=== PATIENT | male | born 1945 | race Caucasian/White ===

== ENCOUNTER 2017-06-16 09:51 | Inpatient (IN) ==
--- OUTSIDE RECORDS SUMMARY | 2017-06-16 11:09 | External Medical Summary | CCD ---
:1945 Author Name JENNIJANETMITCHELL Address [address], [place] [id number] Care Team Providers Name Role Phone MEGHA CANTU Attending Physician Unavailable Vital Signs Unknown or Not Available. Allergies Allergy Code Allergy Type Reaction Status No Known Allergies 0 No known allergies Active Procedures Unknown or Not Available. History of Immunizations Unknown or Not Available. Problems Unknown or Not Available. Results COMP METABOLIC - Collect Date/Time: 04/03/2015 16:11 Test Name Code Test Result Test Units Test Ref Range GLUCOSE 93 mg/dL L=70 H=110 BUN 13 mg/dL L=7 H=18 CREATININE 1.50 mg/dL L=0.60 H=1.30 AGE 69 YEARS GFR 49.6 SODIUM 142 mmol/L L=136 H=145 POTASSIUM 4.0 mmol/L L=3.5 H=5.1 CHLORIDE 105 mmol/L L=98 H=107 CO2 25 mmol/L L=21 H=32 CALCIUM 9.6 mg/dL L=8.5 H=10.1 AST 21 U/L L=15 H=37 ALT 30 U/L L=12 H=78 ALKALINE PHOS 107 U/L L=46 H=116 TOTAL PROTEIN 7.5 g/dL L=6.4 H=8.2 ALBUMIN 4.1 g/dL L=3.4 H=5.0 TOTAL BILI 0.50 mg/dL L=0.00 H=1.00 LIPID PANEL - Collect Date/Time: 04/03/2015 16:11 Test Name Code Test Result Test Units Test Ref Range CHOLESTEROL 158 mg/dL L=0 H=200 TRIGLYCERIDES 238 mg/dL L=30 H=150 HDL 56 mg/dL L=40 H=60 LDL, CALC 54 mg/dL L=0 H=100 VLDL 48 mg/dL L=0 H=40 CHOL/HDL RISK 2.8 RATIO L=0.0 H=5.0 PT FASTING: NO N/A Active Medications Unknown or Not Available. Medications Administered During Visit Unknown or Not Available. Encounters Encounter Diagnosis Diagnosis Code Start Date Essential (primary) hypertension I10 04/03/2015 Social History Smoking Status Code Start Date End Date Former smoker [id number] Patient Decision Aids Unknown or Not Available. Discharge Instructions You were admitted to [facility] AND [facility] on with a principal diagnosis of Essential (primary) hypertension. You were discharged from [facility] on 04/03/2015. Should you have any questions prior to discharge, please contact a member of your healthcare team. If you have left the hospital and have any questions, please contact your primary care physician. Chief Complaint and Reason For Visit Chief Complaint Date of Onset LAB Function Status Unknown or Not Available. Plan of Care Unknown or Not Available. Referral/Transition of Care Unknown or Not Available.
--- OUTSIDE RECORDS SUMMARY | 2017-06-16 11:09 | External Medical Summary | CCD ---
:1945 Author Name MITCHELL ARTEAGA Address [address], [place] [id number] Care Team Providers Name Role Phone EUN EL Attending Physician Unavailable Vital Signs Unknown or Not Available. Allergies Allergy Code Allergy Type Reaction Status No Known Allergies 0 No known allergies Active Procedures Unknown or Not Available. History of Immunizations Unknown or Not Available. Problems Unknown or Not Available. Results Unknown or Not Available. Active Medications Unknown or Not Available. Medications Administered During Visit Unknown or Not Available. Encounters Encounter Diagnosis Diagnosis Code Start Date Cyst of kidney, acquired N281 01/09/2016 Social History Smoking Status Code Start Date End Date Former smoker [id number] Patient Decision Aids Unknown or Not Available. Discharge Instructions You were admitted to [facility] on 01/09/2016 09:39 with a principal diagnosis of Cyst of kidney, acquired You were discharged from [facility] on 01/09/2016 09:39 Should you have any questions prior to discharge, please contact a member of your healthcare team. If you have left the hospital and have any questions, please contact your primary care physician. Chief Complaint and Reason For Visit Chief Complaint Date of Onset US RETO PERITONEAL COMP Function Status Unknown or Not Available. Plan of Care Unknown or Not Available. Referral/Transition of Care Unknown or Not Available.
--- OUTSIDE RECORDS SUMMARY | 2017-06-16 11:09 | External Medical Summary | CCD ---
:1945 Author Name DEEPIKA ÓLPEZ Celine Address [address] [place], [place] [phone] Care Team Providers Name Role Phone MEGHA CANTU Attending Physician Unavailable Vital Signs Unknown or Not Available. Allergies Allergy Code Allergy Type Reaction Status No Known Allergies 0 No known allergies Active Procedures Unknown or Not Available. History of Immunizations Unknown or Not Available. Problems Unknown or Not Available. Results UA AUTO W/ MICRO - Collect Date/Time: 05/29/2014 16:26 Test Name Code Test Result Test Units Test Ref Range COLOR Yellow N/A NORMAL: Yellow APPEARANCE Clear N/A NORMAL: Clear GLUCOSE Negative N/A NORMAL: Negative BILIRUBIN Negative N/A NORMAL: Negative KETONE Negative N/A NORMAL: Negative SPEC GRAVITY 1.015 N/A NORMAL: 1.005-1.030 BLOOD Negative N/A NORMAL: Negative PROTEIN Negative N/A NORMAL: Negative PH 8.0 N/A NORMAL: 5.0-8.0 UROBILINOGEN 1.0 N/A NORMAL: Negative NITRITE Negative N/A NORMAL: Negative LEUKOCYTES Negative N/A NORMAL: Negative MICRO RBC None Seen N/A NORMAL: 0-2 MICRO WBC None Seen N/A NORMAL: 0-2 BACTERIA None Seen N/A NORMAL: None-Trace EPI CELLS None Seen N/A NORMAL: 0-15 MUCUS None Seen N/A NORMAL: None-Small AMORPHOUS None Seen N/A NORMAL: None Seen YEAST None Seen N/A NORMAL: None Seen CRYSTALS None Seen N/A NORMAL: None Seen CAST None Seen N/A NORMAL: None Seen URINE CULTURE? NO N/A Active Medications Unknown or Not Available. Medications Administered During Visit Unknown or Not Available. Encounters Unknown or Not Available. Social History Smoking Status Code Start Date End Date Former smoker [id number] Patient Decision Aids Unknown or Not Available. Discharge Instructions You were admitted to [facility] on 05/29/2014. You were discharged from [facility] on 05/29/2014. Should you have any questions prior to [...]
--- OUTSIDE RECORDS SUMMARY | 2017-06-16 11:09 | External Medical Summary | CCD ---
:1945 Author Name MITCHELL ARTEAGA Address [address], [place] [phone] Care Team Providers Name Role Phone EUN EL Attending Physician Unavailable ANKUSH CALHOUN (Secondary) Physician Unavailable Vital Signs Unknown or Not Available. Allergies Allergy Code Allergy Type Reaction Status No Known Allergies 0 No known allergies Active Procedures Unknown or Not Available. History of Immunizations Unknown or Not Available. Problems Unknown or Not Available. Results RENAL FUNCTION PANEL - Collect Date/Time: 08/27/2015 16:22 Test Name Code Test Result Test Units Test Ref Range GLUCOSE 129 mg/dL L=70 H=110 BUN 18 mg/dL L=7 H=18 CREATININE 1.55 mg/dL L=0.60 H=1.30 AGE 69 YEARS GFR 44.9 SODIUM 140 mmol/L L=136 H=145 POTASSIUM 3.5 mmol/L L=3.5 H=5.1 CHLORIDE 104 mmol/L L=98 H=107 CO2 23 mmol/L L=21 H=32 CALCIUM 9.4 mg/dL L=8.5 H=10.1 ALBUMIN 4.0 g/dL L=3.4 H=5.0 PHOSPHORUS 2.6 mg/dL L=2.5 H=4.9 URIC ACID - Collect Date/Time: 08/27/2015 16:22 Test Name Code Test Result Test Units Test Ref Range URIC ACID 10.5 mg/dL L=2.6 H=7.2 PROTEIN/CREATININE RATIO - Collect Date/Time: 08/27/2015 16:26 Test Name Code Test Result Test Units Test Ref Range PROTEIN, URINE 12.2 mg/dL L=0.0 H=11.9 CREAT, URINE 153.2 mg/dL PROTEIN/CREAT 0.1 CBC W/ DIFF - Collect Date/Time: 08/27/2015 16:22 Test Name Code Test Result Test Units Test Ref Range WBC 8.7 x10^3 L=4.8 H=10.8 RBC 5.24 x10^6 L=4.70 H=6.10 HEMOGLOBIN 16.2 g/dL L=14.0 H=18.0 HEMATOCRIT 48.3 % L=42.0 H=52.0 MCV 92 fL L=80 H=100 MCH 30.9 pg L=27.0 H=33.0 MCHC 33.5 g/dL L=33.0 H=37.0 RDW 13.3 % L=11.5 H=14.5 PLATELETS 196 x10^3 L=150 H=450 MPV 9.2 fL L=7.8 H=11.0 NEUTROPHILS 43.3 % L=40.0 H=80.0 LYMPHOCYTES 42.6 % L=20.0 H=45.0 MONOCYTES 10.3 % L=0.0 H=10.0 EOSINOPHILS 2.9 % L=0.0 H=5.0 BASOPHILS 0.9 % L=0.0 H=2.0 REFLEX MAN DIFF NO N/A UA AUTO W/ MICRO - Collect Date/Time: 08/27/2015 16:26 Test Name Code Test Result Test Units Test Ref Range COLOR Yellow N/A NORMAL: Yellow APPEARANCE Clear N/A NORMAL: Clear GLUCOSE Negative N/A NORMAL: Negative BILIRUBIN Negative N/A NORMAL: Negative KETONE Negative N/A NORMAL: Negative SPEC GRAVITY 1.020 N/A NORMAL: 1.005-1.030 BLOOD Negative N/A NORMAL: Negative PROTEIN Negative N/A NORMAL: Negative PH 5.5 N/A NORMAL: 5.0-8.0 UROBILINOGEN 0.2 N/A NORMAL: Negative NITRITE Negative N/A NORMAL: [...] Encounters Encounter Diagnosis Diagnosis Code Start Date Chronic kidney disease, stage N183 08/27/2015 3 (moderate) Social History Smoking Status Code Start Date End Date Former smoker [id number] Patient Decision Aids Unknown or Not Available. Discharge Instructions You were admitted to [facility] on 08/27/2015 16:17 with a principal diagnosis of Chronic kidney disease, stage 3 (moderate) You had the following tests done: CBC W/ DIFF PROTEIN/CREATININE RATIO RENAL FUNCTION PANEL UA AUTO W/ MICRO URIC ACID You were discharged from [facility] on 08/27/2015 16:17 Should you have any questions prior to [...]
--- OUTSIDE RECORDS SUMMARY | 2017-06-16 11:09 | External Medical Summary | CCD ---
:1945 Author Name MITCHELL ARTEAGA Address [address] [place], [place] [phone] Care Team Providers Name Role Phone EUN EL Attending Physician Unavailable Vital Signs Unknown or Not Available. Allergies Allergy Code Allergy Type Reaction Status No Known Allergies 0 No known allergies Active Procedures Unknown or Not Available. History of Immunizations Unknown or Not Available. Problems Unknown or Not Available. Results URIC ACID - Collect Date/Time: 10/08/2015 16:10 Test Name Code Test Result Test Units Test Ref Range URIC ACID 7.3 mg/dL L=2.6 H=7.2 Active Medications Unknown or Not Available. Medications Administered During Visit Unknown or Not Available. 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 Discharge Instructions You were admitted to [facility] on 10/08/2015 16:03 with a principal diagnosis of Hyperuricemia w/o signs of inflam arthrit and tophaceou You had the following tests done: URIC ACID You were discharged from [facility] on 10/08/2015 16:03 Should you have any questions prior to [...]
--- OUTSIDE RECORDS SUMMARY | 2017-06-16 11:09 | External Medical Summary | CCD ---
:1945 Author Name DEEPIKA LÓPEZ Address [address] [place], [place] [phone] Care Team Providers Name Role Phone RENATE DAVIS Attending Physician Unavailable Vital Signs Unknown or Not Available. Allergies Allergy Code Allergy Type Reaction Status No Known Allergies 0 No known allergies Active Procedures Unknown or Not Available. History of Immunizations Unknown or Not Available. Problems Unknown or Not Available. Results URIC ACID - Collect Date/Time: 11/10/2014 16:35 Test Name Code Test Result Test Units Test Ref Range URIC ACID 8.9 mg/dL L=2.6 H=7.2 CBC W/ DIFF - Collect Date/Time: 11/10/2014 16:35 Test Name Code Test Result Test Units Test Ref Range WBC 13.6 x10^3 L=4.8 H=10.8 RBC 4.96 x10^6 L=4.70 H=6.10 HEMOGLOBIN 15.9 g/dL L=14.0 H=18.0 HEMATOCRIT 47.6 % L=42.0 H=52.0 MCV 96 fL L=80 H=100 MCH 32.0 pg L=27.0 H=33.0 MCHC 33.3 g/dL L=33.0 H=37.0 RDW 13.0 % L=11.5 H=14.5 PLATELETS 209 x10^3 L=150 H=450 MPV 9.0 fL L=7.8 H=11.0 NEUTROPHILS 68.8 % L=40.0 H=80.0 LYMPHOCYTES 20.2 % L=20.0 H=45.0 MONOCYTES 9.8 % L=0.0 H=10.0 EOSINOPHILS 0.6 % L=0.0 H=5.0 BASOPHILS 0.6 % L=0.0 H=2.0 REFLEX MAN DIFF NO N/A SED RATE AUTO - Collect Date/Time: 11/10/2014 16:35 Test Name Code Test Result Test Units Test Ref Range SED RATE 41 mm/HR L=0 H=10 Active Medications Unknown or Not Available. Medications Administered During Visit Unknown or Not Available. Encounters Unknown or Not Available. Social History Smoking Status Code Start Date End Date Former smoker [id number] Patient Decision Aids Unknown or Not Available. Discharge Instructions You were admitted to [facility] on 11/10/2014. You were discharged from [facility] on 11/10/2014. Should you have any questions prior to discharge, please contact a member of your healthcare team. If you have left the hospital and have any questions, please contact your primary care physician. Chief Complaint and Reason For Visit Unknown or Not Available. Function Status Unknown or Not Available. Plan of Care Unknown or Not Available. Referral/Transition of Care Unknown or Not Available.
--- OUTSIDE RECORDS SUMMARY | 2017-06-16 11:09 | External Medical Summary | CCD ---
:1945 Author Name JOEL PALMER Address [address] [place], [place] [phone] Care Team Providers Name Role Phone MEGHA [...] Encounters Encounter Diagnosis Diagnosis Code Start Date HYPERTENSION NOS 4019 10/13/2014 Social History Smoking Status Code Start Date End Date Former smoker [id number] Patient Decision Aids Unknown or Not Available. Discharge Instructions You were admitted to [facility] on with a principal diagnosis of HYPERTENSION NOS. You were discharged from [facility] on 10/13/2014. Should you have any questions prior to discharge, please contact a member of your healthcare team. If you have left the hospital and have any questions, please contact your primary care physician. Chief Complaint and Reason For Visit Chief Complaint Date of Onset US RETRO PERITONEAL COMP Function Status Unknown or Not Available. Plan of Care Unknown or Not Available. Referral/Transition of Care Unknown or Not Available.
--- OUTSIDE RECORDS SUMMARY | 2017-06-16 11:09 | External Medical Summary | Continuity of Care Document ---
:1945 Demographics Phone Unavailable Preferred Language Unknown Marital Status Unknown Evangelical Affiliation Unknown Race Unknown Ethnic Group Unknown Author Organization [facility] Allergies There is no data. Medications There is no data. 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 Encounters ACCT No. Visit Discharge Status Pt. Type Provider Facility Loc./Unit Complaint Date/Time [id number] 02/13/2016 ACT Unknown [id number] 12:41:00 [id number] 01/21/2016 ACT Unknown [id number] 14:16:00 [id number] 09/10/2015 ACT Unknown [id number] 12:53:00 [id number] 06/14/2014 ACT Unknown [id number] 10:33:00 [id number] 04/28/2014 ACT Unknown [id number] 08:58:00 [id number] 04/13/2014 ACT Unknown [id number] 12:47:00 [id number] 02/07/2014 ACT Unknown [id number] 08:28:00 [id number] 10/19/2013 ACT Unknown [id number] 13:14:00 [id number] 02/18/2013 ACT Unknown [id number] 09:08:00 [id number] 01/10/2013 ACT Unknown [id number] 10:13:00 [id number] 01/10/2016 Document 01 12:47:38 Registrati on
--- OUTSIDE RECORDS SUMMARY | 2017-06-16 11:09 | External Medical Summary | CCD ---
:1945 Author Name LÓPEZDEEPIKA Celine Address [address] [place], [place] [phone] Care Team Providers Name Role Phone MEGHA CANTU Attending Physician Unavailable Vital Signs Unknown or Not Available. Allergies Allergy Code Allergy Type Reaction Status No Known Allergies 0 No known allergies Active Procedures Unknown or Not Available. History of Immunizations Unknown or Not Available. Problems Unknown or Not Available. Results COMP METABOLIC - Collect Date/Time: 05/26/2014 16:30 Test Name Code Test Result Test Units Test Ref Range GLUCOSE 99 mg/dL L=70 H=110 BUN 19 mg/dL L=7 H=18 CREATININE 1.80 mg/dL L=0.60 H=1.30 AGE 68 YEARS GFR 40.3 SODIUM 143 mmol/L L=136 H=145 POTASSIUM 4.0 mmol/L L=3.5 H=5.1 CHLORIDE 106 mmol/L L=98 H=107 CO2 25 mmol/L L=21 H=32 CALCIUM 9.1 mg/dL L=8.5 H=10.1 AST 18 U/L L=15 H=37 ALT 33 U/L L=12 H=78 ALKALINE PHOS 86 U/L L=46 H=116 TOTAL PROTEIN 7.3 g/dL L=6.4 H=8.2 ALBUMIN 4.2 g/dL L=3.4 H=5.0 TOTAL BILI 0.60 mg/dL L=0.00 H=1.00 LIPID PANEL - Collect Date/Time: 05/26/2014 16:30 Test Name Code Test Result Test Units Test Ref Range CHOLESTEROL 130 mg/dL L=0 H=200 TRIGLYCERIDES 198 mg/dL L=30 H=150 HDL 52 mg/dL L=40 H=60 LDL, CALC 38 mg/dL L=0 H=100 VLDL 40 mg/dL L=0 H=40 CHOL/HDL RISK 2.5 RATIO L=0.0 H=5.0 PT FASTING: NO N/A Active Medications Unknown or Not Available. Medications Administered During Visit Unknown or Not Available. Encounters Encounter Diagnosis Diagnosis Code Start Date HYPERTENSION NOS 4019 05/26/2014 Social History Smoking Status Code Start Date End Date Former smoker [id number] Patient Decision Aids Unknown or Not Available. Discharge Instructions You were admitted to [facility] on with a principal diagnosis of HYPERTENSION NOS. You were discharged from [facility] on 05/26/2014. Should you have any questions prior to [...]
--- OUTSIDE RECORDS SUMMARY | 2017-06-16 11:09 | External Medical Summary | CCD ---
:1945 Author Name MITCHELL ARTEAGA Address [address] [place], [place] [phone] Care Team Providers Name Role Phone LLOYD UMANZOR Attending Physician Unavailable RENATE DAVIS Rounding (Secondary) Physician Unavailable Vital Signs Unknown or Not Available. Allergies Allergy Code Allergy Type Reaction Status No Known Allergies 0 No known allergies Active Procedures Unknown or Not Available. History of Immunizations Unknown or Not Available. Problems Unknown or Not Available. Results MAGNESIUM - Collect Date/Time: 12/18/2014 15:50 Test Name Code Test Result Test Units Test Ref Range MAGNESIUM 2.1 mg/dL L=1.8 H=2.4 RENAL FUNCTION PANEL - Collect Date/Time: 12/18/2014 15:50 Test Name Code Test Result Test Units Test Ref Range GLUCOSE 105 mg/dL L=70 H=110 BUN 17 mg/dL L=7 H=18 CREATININE 1.60 mg/dL L=0.60 H=1.30 AGE 69 YEARS GFR 46.1 SODIUM 138 mmol/L L=136 H=145 POTASSIUM 3.7 mmol/L L=3.5 H=5.1 CHLORIDE 104 mmol/L L=98 H=107 CO2 24 mmol/L L=21 H=32 CALCIUM 9.5 mg/dL L=8.5 H=10.1 ALBUMIN 3.9 g/dL L=3.4 H=5.0 PHOSPHORUS 3.7 mg/dL L=2.5 H=4.9 URIC ACID - Collect Date/Time: 12/18/2014 15:50 Test Name Code Test Result Test Units Test Ref Range URIC ACID 8.6 mg/dL L=2.6 H=7.2 CREATININE CLEARANCE - Collect Date/Time: 12/18/2014 04:30 Test Name Code Test Result Test Units Test Ref Range HEIGHT 69.0 INCHES WEIGHT 190.0 LBS BSA 2.02 m^2 CREAT, URINE 147.0 mg/dL CREATININE 1.60 mg/dL L=0.60 H=1.30 AGE 69 YEARS GFR 46.1 24HR UR VOLUME 1175 ml CREAT, 24HR URINE 1727 mg/24HR L=600 E=8491 CREAT CLEARANCE 64 mL/min L=97 H=137 TOTAL PROTEIN, 24 HR URINE - Collect Date/Time: 12/18/2014 04:30 Test Name Code Test Result Test Units Test Ref Range PROTEIN, URINE 8.9 mg/dL L=0.0 H=11.9 24HR UR VOLUME 1175 ml PROTEIN, 24HR UR 104.6 mg/24HR L=0.0 H=150 CBC W/ DIFF - Collect Date/Time: 12/18/2014 15:50 Test Name Code Test Result Test Units Test Ref Range WBC 10.7 x10^3 L=4.8 H=10.8 RBC 5.04 x10^6 L=4.70 H=6.10 HEMOGLOBIN 15.8 g/dL L=14.0 H=18.0 HEMATOCRIT 47.4 % L=42.0 H=52.0 MCV 94 fL L=80 H=100 MCH 31.4 pg L=27.0 H=33.0 MCHC 33.4 g/dL L=33.0 H=37.0 RDW 13.3 % L=11.5 H=14.5 PLATELETS 242 x10^3 L=150 H=450 MPV 9.0 fL L=7.8 H=11.0 NEUTROPHILS 50.3 % L=40.0 H=80.0 LYMPHOCYTES 38.2 % L=20.0 H=45.0 MONOCYTES 8.5 % L=0.0 H=10.0 EOSINOPHILS 2.0 % L=0.0 H=5.0 BASOPHILS 1.0 % L=0.0 H=2.0 REFLEX MAN DIFF NO N/A C4 COMPLEMENT - Collect Date/Time: 12/18/2014 15:50 Test Name Code Test Result Test Units Test Ref Range Complement C4, Serum 4498-2 27 mg/dL 9-36 COMPLEMENT C3 - Collect Date/Time: 12/18/2014 15:50 Test Name Code Test Result Test Units Test Ref Range Complement C3, Serum 4485-9 147 mg/dL 90-180 FREE KAPPA & LAMBDA LT. CHAINS, SERUM - Collect Date/Time: 12/18/2014 15:50 Test Name Code Test Result Test [place] [address]-2 19.57 mg/L 3.30-19.40 Chains,[place] [address]-8 11.75 mg/L 5.71-26.30 Chains,S Oriental/Lambda 35160-8 1.67 0.26-1.65 Ratio,S IMMUNOFIXATION (JACEY), SERUM - Collect Date/Time: 12/18/2014 15:50 Test Name Code Test Result Test Units Test Ref Range Immunoglobulin G, 2465-3 770 mg/dL 700-1600 Qn,Serum Immunoglobulin A, 2458-8 204 mg/dL 91-414 Qn,Serum Immunoglobulin M, 2472-9 95 mg/dL 40-230 Qn,Serum IMMUNOFIXATION (JACEY), URINE - Collect Date/Time: 12/18/2014 04:30 Test Name Code Test Result Test Units Test Ref Range TOTAL VOLUME: 1175 MLS N/A PROTEIN ELECTROPHORESIS, 24-HR URINE - Collect Date/Time: 12/18/2014 04:30 Test Name Code Test Result Test Units Test Ref Range Protein,Total,Urine 2888-6 5.4 mg/dL 0.0-15.0 Prot,24hr calculated 2889-4 63.5 30.0-150.[place] [address]-7 36.7 % NOT ESTAB. Vbmqx-9-[place] [address]-4 7.7 % NOT ESTAB. Xsmak-2-Gmljq[place] [address]-4 16.1 % [place] [address]-2 23.8 % [place]. [place] [address]-7 15.7 % NOT ESTAB. TOTAL VOLUME: 1175 MLS N/A M-Jonnathan, % 76698-5 Not Observed N/A Not Observed M-Jonnathan, mg/24 hr 93311-5 BANQUET CHEF N/A PROTEIN ELECTROPHORESIS, SERUM - Collect Date/Time: 12/18/2014 15:50 Test Name Code Test Result Test Units Test Ref Range Protein, Total, 2885-2 6.9 g/dL 6.0-8.5 Serum Albumin 2862-1 3.7 g/dL 3.2-5.6 Uakng-8-Llwbsqql 2865-4 0.3 g/dL 0.1-0.4 Ribid-3-Uxuzrbbn 2868-8 0.9 g/dL 0.4-1.2 Beta Globulin 2871-2 1.1 g/dL 0.6-1.3 Gamma Globulin 2874-6 0.8 g/dL 0.5-1.6 Globulin, Total 88999-0 3.2 g/dL 2.0-4.5 A/G Ratio 1759-0 1.2 0.7-2.0 M-Jonnathan 01815-1 Not Observed N/A Not Observed PTH, INTACT - Collect Date/Time: 12/18/2014 15:50 Test Name Code Test Result Test Units Test Ref Range PTH, Intact 2731-8 37 pg/mL 15-65 VITAMIN D (25-HYDROXY) - Collect Date/Time: 12/18/2014 15:50 Test Name Code Test Result Test Units Test Ref Range Vitamin D, 34430-0 57.2 ng/mL 30.0-100.0 25-Hydroxy Active Medications Unknown or Not Available. Medications Administered During Visit Unknown or Not Available. Encounters Encounter Diagnosis Diagnosis Code Start Date Chronic kidney disease, stage N183 12/18/2014 3 (moderate) Social History Smoking Status Code Start Date End Date Former smoker [id number] Patient Decision Aids Unknown or Not Available. Discharge Instructions You were admitted to [facility] on 07/2014 with a principal diagnosis of Chronic kidney disease, stage 3 (moderate). You had the following tests done: Vitamin D, 25-Hydroxy PTH, Intact Immunoglobulin G, Qn,Serum Immunoglobulin A, Qn,Serum Immunoglobulin M, Qn,Serum Protein, Total, Serum Albumin Stsgy-0-Oojnnewg Nkada-9-Fhaitbkm Beta Globulin Gamma Globulin M-Jonnathan Globulin, Total A/G Ratio Complement C3, Serum Complement C4, Serum Free Oriental Lt Chains,S Free Lambda Lt Chains,S Oriental/Lambda Ratio,S TOTAL VOLUME: TOTAL VOLUME: Protein,Total,Urine Prot,24hr calculated Albumin, U Coqkv-5-Pxhsslob, U Brtaj-4-Vsfndmrd, U Beta Globulin, U Gamma Globulin, U M-Jonnathan, % M-Jonnathan, mg/ 24 hr You were discharged from [facility] on 12/18/2014. Should you have any questions prior to [...]
--- NOTE | 2017-06-16 11:14 | Orthopedic History & Physical ---
Orthopedic HPI - HPI Comments Chetan started having left elbow pain Thursday mid afternoon. Has noticed increased redness and swelling of left elbow, warm to the touch. Painful to extend or move arm. C/O chills, fever. Seen by PCP and was admitted to [facility] in [place] for possible septic joint yesterday. CRP 44 at that time. Received Vancomycin 1gm and Rocephin last night. Repeat labs this morning revealed CRP elevated to 223. WBC 14.3. Reported fever of [address] Laird was notified by Dr. Gudino, admitted directly to [facility]. Patient reports history of gout and is on allopurinol. 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 Absent: weakness, dizziness - Cardiovascular Cardiovascular: Absent: chest pain, palpitations - Respiratory Respiratory: Absent: cough, dyspnea on exertion, wheezing - Gastrointestinal Gastrointestinal: Absent: abdominal pain, nausea, vomiting - Musculoskeletal Musculoskeletal: Present: as per HPI, joint swelling, limited range of motion, tenderness, joint pain - Neurological Neurological: Absent: dizziness, weakness, tingling Medications Home Medications Medication Instructions Recorded Confirmed Type Febuxostat [Uloric] 40 mg PO QDRHS 06/16/17 06/16/17 History Lisinopril [Prinivil] 5 mg PO DAILY 06/16/17 06/16/17 History Metoprolol Tartrate [Lopressor] 25 mg PO WB 06/16/17 06/16/17 History Ranitidine [Zantac] 150 mg PO QAM 06/16/17 06/16/17 History Simvastatin [Zocor] 20 mg PO HS 06/16/17 06/16/17 History Allergies Allergy/AdvReac Type Severity Reaction Status Date / Time No Known Allergies Allergy Verified 06/16/17 12:30 Exam - Constitutional General: cooperative, no acute distress, well developed, well groomed Orientation: alert, oriented x3 - Gait Gait: normal gait - RUE General: normal to inspection - LUE General: edema Skin: erythema, other (Left elbow with erythematous and edematous, with extension distally and proximal from elbow. Warm to palpation. No lesions noted. ) Shoulder Range of Motion: within normal limits Wrist Range of Motion: within normal limits Neurological: no deficits, normal to light touch Vascular: radial pulse within normal limits - Cast/Brace Cast/Brace Side: left Cast/Brace Type: other (sling) Condition: exposed digits with good ROM and capillary refill - Respiratory Respiratory Exam: non-labored - Cardiac Cardiovascular exam: other (radial pulses intact) Orthopedic Assessment and Plan (1) Cellulitis of left elbow Status: Acute Assessment and Plan: Patient was kept NPO for possible wash out of left elbow septic joint. CT scan ordered and showed cellulitis only, no effusion or osteomyelitis. Dr. Laird consulted Dr. Velasco for antibiotic management, will restart Vancomycin per pharmacy and Rocephin 1 gm daily. Patient may eat, will make clear liquid in the morning in case need to proceed with washing out left elbow. Repeat CBC, BMP, CRP in the morning. Consult hospitalist for medical management, HTN, CKD. Hospital Course Summary Disclaimer: The visit summary below is not to be considered part of the above Progress Note.
[2017-06-16] MEDS ORDERED: MORPHINE SULFATE 10 MG SYRINGE IV PRN (11:45)
[2017-06-16 11:54] VITALS: BMI 29.5
[2017-06-16] MEDS ORDERED: IODIXANOL 320mg/ml 100ml INJECTION IV ONE ×2 (13:12)
[2017-06-16] MEDS ORDERED: SALINE FLUSH 10ml SYRINGE ONE (13:12)
[2017-06-16] MEDS ORDERED: NS 1,000 ML IV SCH (13:30)
--- NOTE | 2017-06-16 13:45 | CT Scan Report ---
Indication: septic joint, possible osteomyelitis PROCEDURE: CT elbow LT w con: Encounter: Initial Comparison: None Technique: Axial CT images were performed through the left elbow after the administration of intravenous contrast. Coronal and sagittal two-dimensional reformats. Automated Exposure Control and Iterative Reconstruction dose reducing techniques were utilized. Contrast: Visipaque 320 100 mL Findings: Bone windows show no acute fracture or dislocation. There is mild degenerative change in the elbow joint with osteophyte formation on the radial head. There is no periosteal reaction or osteolysis to suggest osteomyelitis. Mild enthesopathy changes at the olecranon process. No evidence of a joint effusion. Muscular attenuation is normal. There is overlying subcutaneous inflammation and fat stranding seen around the supracondylar humeral area extending to the proximal forearm near the olecranon process. No rim-enhancing abscess however. No sinus tract or fistula noted. Impression: Findings of a cellulitis but no CT evidence of osteomyelitis. .
--- NOTE | 2017-06-16 14:46 | Progress Note ---
- Date 06/16/17 Subjective: Patient is a 71-year-old male who was transferred to [facility] from [facility] due to concern of possible septic elbow. Patient reports he started having elbow pain on 06/13 and by 06/14 he had developed fever and significant pain. At that time he went to the emergency room and was given an IV antibiotic with instructions to follow-up with his PCP the next day. On 06/15, he was seen by his physician and hospitalized for IV antibiotics (vancomycin and Rocephin). He was transferred here for orthopedic evaluation given his elevation of white count despite IV antibiotic treatment. Presently patient's pain is a 0 at rest. Rates 7-8 with movement. Previously 9-10 prior to narcotic pain medication. Patient has no recollection of any injury to the elbow. He did have surgery on his elbow over 10 years ago for what sounds like an ulnar nerve transposition. He's never had any complications or problems with this elbow since surgery. Objective Vital signs: Temperature 98.4 F 06/16/17 13:48 Pulse Rate 84 06/16/17 13:48 Respiratory Rate 26 H 06/16/17 13:48 Blood Pressure 159/85 H 06/16/17 13:48 Pulse Oximetry 92 06/16/17 14:32 Height/Weight/BMI: Height 1.77 m Weight 92 kg Body Mass Index 29.5 - Constitutional Present: no acute distress, well nourished, well developed - Routine HEENT Exam Head: Present: normocephalic, atraumatic - Routine Respiratory Exam Present: CTA bilaterally. Absent: wheezes - Routine Cardiovascular Exam Present: RRR, no murmur - Routine Abdominal Exam Present: soft, non distended, non tender - Routine Extremities Exam Present: no edema, normal capillary refill Comments: Left elbow with moderate swelling and erythema and tenderness. Significant pain with movement and lack of range of motion due to pain. Decreased fiberglass laminator strength left compared to right. - Routine Skin Exam Present: dry, warm - Routine Neurological Exam Present: alert, oriented X3 - Routine Lymphatic Exam Lymphatic: Absent: adenopathy - Routine Psychiatric Exam Present: normal affect, cooperative Results - Imaging and Cardiology CT elbow Additional comments: Date of Exam: 06/16/17 Indication: septic joint, possible osteomyelitis PROCEDURE: CT elbow LT w con: Findings: Bone windows show no acute fracture or dislocation. There is mild degenerative change in the elbow joint with osteophyte formation on the radial head. There is no periosteal reaction or osteolysis to suggest osteomyelitis. Mild enthesopathy changes at the olecranon process. No evidence of a joint effusion. Muscular attenuation is normal. There is overlying subcutaneous inflammation and fat stranding seen around the supracondylar humeral area extending to the proximal forearm near the olecranon process. No rim-enhancing abscess however. No sinus tract or fistula noted. Impression: Findings of a cellulitis but no CT evidence of osteomyelitis. Assessment and Plan (1) Cellulitis of left elbow Current visit: Yes Status: Acute Assessment and Plan: Outside labs: 06/15/17 blood cultures-pending 06/15/17 WBC 12.7 06/16/17 WBC 14.1, hemoglobin 14.1 platelet 183. 06/14/17 CRP 44, uric acid 3.9 06/16/17 CRP 223 06/16/17 creatinine 1.45, BUN 20, sodium 137, potassium 3.8 Assessment Cellulitis left elbow-rule out septic joint Leukocytosis Chronic/associated conditions Hypertension Chronic gout Chronic kidney disease Hyperlipidemia GERD Plan Dr. Laird plans to take patient to the OR presumably for washout. CT shows cellulitis and no evidence of osteomyelitis. Continue antibiotics. He was receiving Rocephin and vancomycin at [facility]. Blood cultures are pending from [facility]. Uric acid level is normal. Patient on allopurinol chronically. Last gout flare greater than 1 year ago. Blood pressure elevated as would be expected given his pain. Will follow pressures. Continue home lisinopril and metoprolol. Continue ranitidine for GERD. Continue allopurinol for gout., Continue Zocor for hyperlipidemia Follow creatinine given his chronic kidney disease. CODE STATUS: DO NOT RESUSCITATE SCDs for DVT prophylaxis Care to return to the [facility] medical clinic upon dismissal. Will continue to follow patient throughout his stay. Thank you for the consult. DVT Prophylaxis: SCD's Resuscitation Status: Do Not Resuscitate - Physician Narrative Physician: Priya Stewart MD Narrative: Date: 06/16/17 Time: 1437 Hospital Course Summary Disclaimer: The visit summary below is not to be considered part of the above Progress Note. Hospital Course: 06/16/17-hospitalist consultation Dr. Laird plans to take patient to the OR presumably for washout. CT shows cellulitis and no evidence of osteomyelitis. Continue antibiotics. He was receiving Rocephin and vancomycin at [facility]. Blood cultures are pending from [facility]. Uric acid level is normal. Patient on allopurinol chronically. Last gout flare greater than 1 year ago. Blood pressure elevated as would be expected given his pain. Will follow pressures. Continue home lisinopril and metoprolol. Continue ranitidine for GERD. Continue allopurinol for gout., Continue Zocor for hyperlipidemia Follow creatinine given his chronic kidney disease. CODE STATUS: DO NOT RESUSCITATE SCDs for DVT prophylaxis Care to return to the [facility] medical clinic upon dismissal.
--- NOTE | 2017-06-16 15:12 | Consult Note ---
Consult Information - Data of Consult Consult date: 06/16/17 Requesting Physician: Zay Laird MD Primary Care Provider: Gregory Gudino DO Family Provider: Gregory Gudino DO - Consult Narrative Reason for consult: Management of chronic medical issues History of present illness: Patient is a 71-year-old male who was [facility] concern of possible [facility] elbow. Patient reports he started having elbow pain on 06/13 and by 06/14 he had developed fever and significant pain. At that time he went to the emergency room and was given an IV antibiotic with instructions to follow-up with his PCP the next day. On 06/15, he was seen by his physician and hospitalized for IV antibiotics (vancomycin and Rocephin). He was transferred here for orthopedic evaluation given his elevation of white count despite IV antibiotic treatment. Presently patient's pain is a 0 at rest. Rates 7-8 with movement. Previously 9-10 prior to narcotic pain medication. Patient has no recollection of any injury to the elbow. He did have surgery on his elbow over 10 years ago for what sounds like an ulnar nerve transposition. He's never had any complications or problems with this elbow since surgery. Past Medical History Medical History Updates: Hypertension. Chronic gout. Chronic kidney disease. Hyperlipidemia. GERD Surgical History: Appendectomy. Left elbow surgery (? Ulnar nerve transposition ) Family History: Father-unknown medical history. when patient was for. Mother- of [place] Brother-. Patient unsure of cause of or any health problems. Family History: As Above - Social History Smoking status: Current some day smoker (smokes and he goes to the [employer], otherwise, quit smoking regularly over 10 years ago) Substance use type: does not use Alcohol intake frequency: a few times a month Housing: house Social history: Patient does not identify a primary care provider. States he just sees "whoever is available at [facility]. " Dr. Gudino was following patient while he was hospitalized in [place]. Review of Systems All systems PM: 10-point ROS was reviewed, no additional remarkable complaints except (left elbow pain, "feverish") Medications Home Medications Medication Instructions Recorded Confirmed Type Febuxostat [Uloric] 40 mg PO QDRHS 06/16/17 06/16/17 History Lisinopril [Prinivil] 5 mg PO DAILY 06/16/17 06/16/17 History Metoprolol Tartrate [Lopressor] 25 mg PO WB 06/16/17 06/16/17 History Ranitidine [Zantac] 150 mg PO QAM 06/16/17 06/16/17 History Simvastatin [Zocor] 20 mg PO HS 06/16/17 06/16/17 History Allergies Allergy/AdvReac Type Severity Reaction Status Date / Time No Known Allergies Allergy Verified 06/16/17 12:30 Exam Vital Signs: Temperature 98.4 F 06/16/17 13:48 Pulse Rate 84 06/16/17 13:48 Respiratory Rate 26 H 06/16/17 13:48 Blood Pressure 159/85 H 06/16/17 13:48 Pulse Oximetry 92 06/16/17 14:32 Height/Weight/BMI: Height 1.77 m Weight 92 kg Body Mass Index 29.5 - Constitutional Present: no acute distress, well nourished, well developed - Routine HEENT Exam Head: Present: normocephalic, atraumatic ENT: Present: mucous membranes moist, oropharynx clear - Routine Neck Exam Present: supple. Absent: lymphadenopathy, thyromegaly - Routine Respiratory Exam Present: CTA bilaterally. Absent: wheezes - Routine Cardiovascular Exam Present: RRR, no murmur - Routine Abdominal Exam Present: soft, normoactive bowel sounds. Absent: tenderness, distended - Routine Extremities Exam Present: no edema, normal capillary refill Comments: Left elbow with moderate swelling and erythema and tenderness. Significant pain with movement and lack of range of motion due to pain. Decreased mental health consultant strength left compared to right. - Routine Skin Exam Present: dry, warm - Routine Neurological Exam Present: alert, oriented X3, CN II-XII intact - Routine Psychiatric Exam Present: normal affect, cooperative Results - Imaging and Cardiology CT elbow Additional comments: Date of Exam: 06/16/17 Indication: septic joint, possible osteomyelitis PROCEDURE: CT elbow LT w con: Findings: Bone windows show no acute fracture or dislocation. There is mild degenerative change in the elbow joint with osteophyte formation on the radial head. There is no periosteal reaction or osteolysis to suggest osteomyelitis. Mild enthesopathy changes at the olecranon process. No evidence of a joint effusion. Muscular attenuation is normal. There is overlying subcutaneous inflammation and fat stranding seen around the supracondylar humeral area extending to the proximal forearm near the olecranon process. No rim-enhancing abscess however. No sinus tract or fistula noted. Impression: Findings of a cellulitis but no CT evidence of osteomyelitis. Assessment and Plan (1) Cellulitis of left elbow Current visit: Yes Status: Acute Assessment and Plan: Outside labs: 06/15/17 blood cultures-pending 06/15/17 WBC 12.7 06/16/17 WBC 14.1, hemoglobin 14.1 platelet 183. 06/14/17 CRP 44, uric acid 3.9 06/16/17 CRP 223 06/16/17 creatinine 1.45, BUN 20, sodium 137, potassium 3.8 Assessment Cellulitis left elbow-rule out septic joint Leukocytosis Chronic/associated conditions Hypertension Chronic gout Chronic kidney disease Hyperlipidemia GERD Plan CT shows cellulitis and no evidence of osteomyelitis. Dr. Laird may take pt to OR tomorrow pending sxs/labs, etc. Continue antibiotics. He was receiving Rocephin and vancomycin at [facility]. Blood cultures are pending from [facility]. Start MiraLAX and senna daily for bowel motivation as patient tends to be constipated and is being treated with narcotic pain medication. Uric acid level is normal. Patient on allopurinol chronically. Last gout flare greater than 1 year ago. Blood pressure elevated as would be expected given his pain. Will follow pressures. Continue home lisinopril and metoprolol. Continue ranitidine for GERD. Continue allopurinol for gout., Continue Zocor for hyperlipidemia Follow creatinine given his chronic kidney disease. CODE STATUS: DO NOT RESUSCITATE SCDs for DVT prophylaxis Care to return to the [facility] medical clinic upon dismissal. Will continue to follow patient throughout his stay. Thank you for the consult. DVT Prophylaxis: SCD's Resuscitation Status: Do Not Resuscitate - Physician Narrative Physician: Priya Stewart MD Narrative: Date: 06/16/17 Time: 2009 I have independently evaluated and examined this patient. I reviewed the chart, the patient's history, and the AWNING CRAFTSPERSON/PA's documented findings as above. We discussed and formulated the assessment and plan as above with additions as below: Mr. Tamayo was resting comfortably when seen. He described onset of elbow pain 4 days ago with aggravation of pain by any movement of the left elbow and inability to fully extend the left arm at the elbow due to pain. No recognized trauma/bite/splinters-etc. Patient is alert and cooperative, he appeared comfortable time of my evaluation. Respirations nonlabored, breath sounds clear; regular cardiac rhythm The left elbow has moderate soft tissue swelling and is held at approximately 150; patient clearly guards the arm. There is very faint erythema over the olecranon which is not well demarcated/ defined. This probably extends over about an 8-10 cm area. Outside labs reviewed; CT of the elbow reviewed by myself-soft tissue swelling without joint space fluid/effusion. Limited motion of the left elbow more suggestive of joint space infection however CT without fluid in the joint. May be worth aspiration prior to consideration of surgical irrigation. Patient has been partially treated but at present there is minimal erythema and I would not anticipate the degree of pain/ motion reduction he is experiencing with cellulitis along. Continue antibiotics- reassess tomorrow and discuss with orthopedics further at that time. Transfer records reviewed. Hospital Course Summary Disclaimer: The visit summary below is not to be considered part of the above Progress Note. Hospital Course: 06/16/17-hospitalist consultation CT shows cellulitis and no evidence of osteomyelitis. Dr. Laird may take pt to OR tomorrow pending sxs/labs, etc. Continue antibiotics. He was receiving Rocephin and vancomycin at [facility]. Blood cultures are pending from [facility]. Uric acid level is normal. Patient on allopurinol chronically. Last gout flare greater than 1 year ago. Start MiraLAX and senna daily for bowel motivation as patient tends to be constipated and is being treated with narcotic pain medication. Blood pressure elevated as would be expected given his pain. Will follow pressures. Continue home lisinopril and metoprolol. Continue ranitidine for GERD. Continue allopurinol for gout., Continue Zocor for hyperlipidemia Follow creatinine given his chronic kidney disease. CODE STATUS: DO NOT RESUSCITATE SCDs for DVT prophylaxis Care to return to the [facility] clinic upon dismissal.
[2017-06-16] MEDS ORDERED: VANCOMYCIN - PHARMACY CONSULT MC ONE (15:33)
[2017-06-16] MEDS: Oxycodone/Acetaminophen 5/325 1 TAB PO PRN (15:42)
[2017-06-16] MEDS ORDERED: CEFTRIAXONE 1 G in NS 50 ML IV SCH (16:00)
--- NOTE | 2017-06-16 16:47 | Pharmacy Consult-Antibiotics ---
Pharmacy Consult-Vancomycin - Consult Information VANCOMYCIN CONSULT: Dx: CELLULITIS Current Renal Fx: SCr = 1.45mg/dl from [facility]. Will give Vancomycin 1,500mg loading dose then 1,250mg ivpb q18h. Will continue to monitor and adjust regimen to maintain therapeutic levels. Thank you.
[2017-06-16] MEDS ORDERED: NS FLUSH BAG 500ml IV PRN (16:58)
[2017-06-16] MEDS ORDERED: CEFTRIAXONE 1 G INJECTION IM SCH (17:00)
[2017-06-16] MEDS: FEBUXOSTAT 40 MG TABLET PO SCH (17:18)
[2017-06-16] MEDS: SENNOSIDES 8.6 MG TABLET PO SCH (20:49)
[2017-06-16] MEDS: LISINOPRIL 5 MG TABLET PO SCH (20:50)
[2017-06-17] MEDS: MORPHINE SULFATE 4mg INJECTION IVP PRN ×2 (08:22→10:40)
--- NOTE | 2017-06-17 08:29 | Infectious Disease Consult ---
Infectious Disease Consult Date of Consultation: 06/17/17 Requesting Physician: Zay Laird Reason for Consultation: antibiotic recs, L elbow swelling History of Present Illness: Mr. Hernandez is a 71 y/o man with a h/o gout who reports that he developed redness pain and swelling over his left elbow last Thursday. 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 He was seen in the emergency room on Thursday and . He states that he was discharged from the emergency room on Thursday. He followed up with his physician on Thursday morning who evaluated him and then admitted him to the hospital in [place]. He also reports that he had fever associated with shaking chills starting on Thursday. Blood cultures were drawn in [place] and they are negative after 24 hours. He was started on vancomycin and Rocephin. His CRP was noted to be significantly elevated. His uric acid level was normal. He was transferred here yesterday under the care of Dr. Laird due to concern for an infected joint. He had a CT done yesterday which did not show a joint effusion or any clear evidence of olecranon bursitis. He has continued on vancomycin and Rocephin. He is not sure if the redness and swelling have improved very much on these antibiotics. He is also had leukocytosis. He had slightly elevated creatinine on admission in [place] however his creatinine now is 1.4. This morning he reports increased pain in his calves bilaterally as well as pain in his ankles and feet. He wonders if this is gout but he also wonders if the SCDs are contributing to his calf pain. He had difficulty walking this morning because of this. He typically takes allopurinol according to records however he his thought that he was taking Uloric. He was made nothing by mouth for possible surgery today however that has now been put on hold. Patient reports that he had some type of surgery on his left elbow about 10 years ago that sounds like a nerve surgery. Medications Home Medications Medication Instructions Recorded Confirmed Type Febuxostat [Uloric] 40 mg PO QDRHS 06/16/17 06/16/17 History Lisinopril [Prinivil] 5 mg PO DAILY 06/16/17 06/16/17 History Metoprolol Tartrate [Lopressor] 25 mg PO WB 06/16/17 06/16/17 History Ranitidine [Zantac] 150 mg PO QAM 06/16/17 06/16/17 History Simvastatin [Zocor] 20 mg PO HS 06/16/17 06/16/17 History Allergies Allergy/AdvReac Type Severity Reaction Status Date / Time No Known Allergies Allergy Verified 06/16/17 12:30 PFSH Patient Stated Medical History Hypertension Yes Sleep Apnea No Hx Renal Disease Yes Medical History Updates: Hypertension. Chronic gout. Chronic kidney disease. Hyperlipidemia. GERD Surgical History: Appendectomy. Left elbow surgery (? Ulnar nerve transposition ) Family History: Father-unknown medical history. when patient was for. Mother- of [place] Brother-. Patient unsure of cause of or any health problems. 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) Does patient use chewing tobacco?: Yes Review of Systems All systems PM: 10-point ROS was reviewed, no additional remarkable complaints except - Constitutional Constitutional: Present: anorexia, chills, fever(s) - Cardiovascular Cardiovascular: Absent: chest pain - Respiratory Respiratory: Absent: cough, dyspnea - Gastrointestinal Gastrointestinal: Absent: diarrhea, nausea, vomiting - Musculoskeletal Musculoskeletal: Present: arthralgias (L elbow), joint swelling (L elbow), myalgias (calf pain) - Integumentary/Breasts Integumentary Comments: Denies any history of eczema or psoriasis - Neurological Neurological: Absent: headache(s) Exam Vital Signs: Temperature 98.2 F 06/17/17 07:18 Pulse Rate 82 06/17/17 07:18 Respiratory Rate 12 06/17/17 07:18 Blood Pressure 147/83 H 06/17/17 07:18 Pulse Oximetry 94 06/17/17 07:18 Height/Weight/BMI: Height 1.77 m Weight 90.1 kg Body Mass Index 29.5 - Constitutional Present: no acute distress, well nourished, well developed - Routine HEENT Exam Head: Present: normocephalic, atraumatic Eye: Present: EOMI, PERRL ENT: Present: mucous membranes moist, oropharynx clear, dentition normal - Routine Neck Exam Present: supple - Routine Respiratory Exam Present: CTA bilaterally - Routine Cardiovascular Exam Present: RRR - Routine Abdominal Exam Present: soft, normoactive bowel sounds, non distended, non tender - Routine Exam Comments: no starkey or bladder distention - Routine Extremities Exam Present: calf tenderness (bilaterally), joint swelling (L elbow). Absent: cyanosis, clubbing, edema (LEs), palpable cord - Detailed Upper Extremity Exam Elbow: Left erythema (moderate), Left swelling, Left tenderness, Left decreased ROM - Routine Skin Exam Present: erythema (over L elbow, indistinct borders, mild warmth) Comments: He has 2 small areas of scaly appearing skin on the left upper extremity which looks a little bit like psoriasis to me. - Routine Neurological Exam Present: alert, oriented X3, CN II-XII intact, normal speech. Absent: motor deficit - Routine Psychiatric Exam Present: normal affect Results - Labs CBC & Chem 7: 06/17/17 03:54 06/17/17 03:54 Microbiology Results: Blood cultures 06/16 from [facility] Impression: L elbow cellulitis with concern for deeper infection Fever, chills Leukocytosis H/o surgery on L elbow 10 years ago, ? ulnar nerve transposition Bilateral calf pain/LE pain Gout HTN HLD CKD Recommendation: I would recommend continuing with vancomycin alone. Will follow up on blood culture results. I would recommend obtaining an MRI of the left elbow to evaluate further for evidence of tendinitis or osteomyelitis. He does not appear to have septic olecranon bursitis. He does not have an obvious joint effusion. Regarding his lower extremity pain I will check a CPK. I would consider adding a nonsteroidal anti-inflammatory or colchicine to see if this helps his symptoms. I will be out until next Thursday but I will be available by phone with any questions.
--- NOTE | 2017-06-17 08:44 | Orthopedic Progress Note ---
Date: Date: 06/17/17 Time: 833 Subjective/Severity of Illness: Patient is sitting up on the edge of the bed this morning. States his left elbow pain has minimally improved overnight. However, when he got up to the restroom this morning he was having lower extremity weakness and said it was difficult to get back to bed. Pain of 8-9 while ambulating bilateral legs distal of knees. Feels pain may be similar to gout flares in the past, but was isolated to one joint as expected. Last gout flare over a year ago. Was changed to Uloric 6 months ago and states has been compliant with medication regimen. Patient unsure if has taken colchicine in the past for acute attacks. Reports feeling feverish/chills, afebrile temp recordings. Reports surgery on left elbow for "pinched nerve" 10 years ago. No other surgeries or history of gout in left elbow. Exam - Constitutional Vital Signs: Temperature 98.2 F 06/17/17 07:18 Pulse Rate 82 06/17/17 07:18 Respiratory Rate 12 06/17/17 07:18 Blood Pressure 147/83 H 06/17/17 07:18 Pulse Oximetry 94 06/17/17 07:18 General: cooperative, no acute distress, well developed, well groomed Orientation: alert, oriented x3 - LUE General: edema Skin: erythema, induration, other (erythematous with mild induration over left elbow, extends proximally and distally. ) - RLE Neurological: no deficits, normal to light touch Right Lower Extremity comments: tenderness to palpation over bilateral lower extremities distal of knee, calves , ankles. Mild erythema noted over great toe with tenderness to palpation. - Respiratory Respiratory Exam: CTA bilaterally, non-labored - Cardiac Cardiovascular exam: Regular Rate/Rhythm, other (radial pulses intact) - Labs Result Diagrams: 06/17/17 03:54 06/17/17 03:54 Abnormal lab results 06/17/17 06/17/17 Range/Units 03:54 03:54 WBC 12.7 H (4.5-11.0) T/MM3 RBC 4.32 L (4.50-5.90) M/MM3 Neut % (Auto) 67.1 H (33-66) % Lymph % (Auto) 18.0 L (23-45) % [place] % (Auto) 13.8 H (0-9.0) % Neut # (Auto) 8.5 H (1.8-7.7) T/MM3 [place] # (Auto) 1.8 H (0-0.8) T/MM3 C-Reactive Protein 265.1 H (0-9) MG/L H & H 06/17/17 Range/Units 03:54 Hgb 14.1 (13.5-17.5) GM/DL Hct 41.0 (41-53) % Orthopedic Assessment and Plan (1) Cellulitis of left elbow Status: Acute Assessment and Plan: Discussed With Dr. Velasco. Awaiting blood cultures from [facility]. She recommends MRI of left elbow, CPK. CRP increased 265 from 244 yesterday. Symptoms not consistent with gout, minimal erythema noted in left great toe will discuss with hospitalist if want to treat acute gout. Continue Vancomycin and Rocephin at this time Keep NPO till review MRI results. Revisited patient later with Dr. Laird. MRI of left elbow reveals myositis with possible septic arthritis and since patient is not improving we will proceed with I&D with exploration of left elbow this afternoon. Remain NPO. Hospital Course Summary Disclaimer: The visit summary below is not to be considered part of the above Progress Note. Hospital Course: 06/16/17-hospitalist consultation CT shows cellulitis and no evidence of osteomyelitis. Dr. Laird may take pt to OR tomorrow pending sxs/labs, etc. Continue antibiotics. He was receiving Rocephin and vancomycin at [facility]. Blood cultures are pending from [facility]. Uric acid level is normal. Patient on allopurinol chronically. Last gout flare greater than 1 year ago. Start MiraLAX and senna daily for bowel motivation as patient tends to be constipated and is being treated with narcotic pain medication. Blood pressure elevated as would be expected given his pain. Will follow pressures. Continue home lisinopril and metoprolol. Continue ranitidine for GERD. Continue allopurinol for gout., Continue Zocor for hyperlipidemia Follow creatinine given his chronic kidney disease. CODE STATUS: DO NOT RESUSCITATE SCDs for DVT prophylaxis Care to return to the [facility] medical clinic upon dismissal.
[2017-06-17] MEDS: POLYETHYL GLYCOL 3350 17gm PACKET PO SCH ×2 (08:49→09:34)
[2017-06-17] MEDS: LISINOPRIL 5 MG TABLET PO SCH (08:49)
[2017-06-17] MEDS: RANITIDINE 150 MG TABLET PO SCH (08:49)
[2017-06-17] MEDS: NS 1,000 ML IV SCH ×3 (08:54→23:18)
--- NOTE | 2017-06-17 10:33 | Progress Note ---
- Date 06/17/17 Subjective: Patient is seen sitting in bed this morning. He reports overnight he developed pain from his knees down. He states a few times he was up to the bathroom and he noticed that he had pain when he would get out of bed. By this morning, he was unable to bear weight and walk due to the pain. He's never experienced anything like this before. He has not noted any swelling or redness or rash to the legs. He states the pain is only from the knees to the feet. He does not complain of numbness. He is concerned that the SCDs may have caused this. He states that the pain in his legs is 8-9 out of 10 and the pain in his elbow at rest is 3-4,and 8-9 with movement. He is no longer running fever, although, subjectively he says he feels "warm." He has had no nausea, vomiting or diarrhea. He feels weak because he has not been able to eat much. He doesn't have an appetite. I confirmed his gout medication as outside records from [facility] listed him on allopurinol. He states he's not been on allopurinol for over [address] Zurita took him off the allopurinol and switched him to Uloric. He has been taking this routinely. Objective Vital signs: Temperature 98.2 F 06/17/17 07:18 Pulse Rate 82 06/17/17 07:18 Respiratory Rate 12 06/17/17 07:18 Blood Pressure 147/83 H 06/17/17 07:18 Pulse Oximetry 94 06/17/17 07:18 Height/Weight/BMI: Height 1.77 m Weight 90.1 kg Body Mass Index 29.5 - Constitutional Present: no acute distress, well nourished, well developed - Routine HEENT Exam Head: Present: normocephalic, atraumatic - Routine Respiratory Exam Present: CTA bilaterally. Absent: wheezes - Routine Cardiovascular Exam Present: RRR, no murmur - Routine Abdominal Exam Present: soft, non distended, non tender - Routine Extremities Exam Present: no edema, normal capillary refill Comments: Bilateral legs are examined. There is no redness, swelling, rash, sensation deficit. He has weakness of the legs, but it is unclear as to whether this is just due to the pain he has with movement. He states he has more pain when I palpate the knee and lower leg as opposed to the pain he gets if he moves the leg. He has no tenderness or pain to the legs above the knees bilaterally. Still has swelling and redness of the left elbow, although swelling does appear to have improved some and he seems a bit less tender. - Routine Skin Exam Present: dry, warm - Routine Neurological Exam Present: alert, oriented X3 - Routine Lymphatic Exam Lymphatic: Absent: adenopathy - Routine Psychiatric Exam Present: cooperative, anxious Results - Labs CBC & Chem 7: 06/17/17 03:54 06/17/17 03:54 Labs: Laboratory Tests 06/17/17 06/17/17 03:54 03:54 Total Creatine Kinase 185 H C-Reactive Protein 265.1 H Assessment and Plan (1) Cellulitis of left elbow Current visit: Yes Status: Acute Assessment and Plan: Outside labs: 06/15/17 blood [id number] growth to date on 06/17/17 06/15/17 WBC 12.7 06/16/17 WBC 14.1, hemoglobin 14.1 platelet 183. 06/14/17 CRP 44, uric acid 3.9 06/16/17 CRP 223 06/16/17 creatinine 1.45, BUN 20, sodium 137, potassium 3.8 Assessment Cellulitis left elbow-rule out septic joint versus gout Leukocytosis Lower leg pain (acute onset overnight for 06/16-06/17-from knees to feet) - question etiology Chronic/associated conditions Hypertension Chronic gout Chronic kidney disease Hyperlipidemia GERD Plan WBC improved from yesterday. 14.1-->12.7. CPK-185. CRP increased from 223-->265 MRI of the elbow showed cellulitis with evidence of myositis and possible septic arthritis. Patient was taken to surgery by Dr. Laird and joint fluid has been sent for evaluation. Dr. Velasco has been consulted and recommends continuing vancomycin and discontinuing Rocephin. Clarified with patient his prophylactic gout medication. Records from [facility] to [facility] indicated he was on allopurinol. He states he had an adverse reaction to allopurinol in the past and Dr. Zurita changed him to Uloric over 6 months ago. Hold Zocor given the pain in his legs (although it is unlikely this has anything to do with his symptoms). Bilateral Doppler of lower extremities was negative. ? etiology of his leg pain. Suspect there is some anxiety playing in to his sxs. Case discussed with Dr. Stewart. DC IV fluids later this evening if patient is taking p.o. well. DVT Prophylaxis: SCD's GI Prophylaxis: Rantidine Resuscitation Status: Do Not Resuscitate - Physician Narrative Physician: Priya Stewart MD Narrative: Date: 06/17/17 Time: 1809 I have independently evaluated and examined this patient. I reviewed the chart, the patient's history, and the CLINICAL CASE MANAGER/PA's documented findings as above. We discussed and formulated the assessment and plan as above with additions as below: Mr. Yu describes persistent pain in his left elbow but has developed bilateral pain in bilateral legs as described above. Pain is not cramping and is greatest with attempts to weight bear. He denies swelling in the joints in the lower extremity. Left elbow has slightly decreased soft tissue swelling compared to yesterday and erythema is fading but tenderness persists. No erythema or soft tissue swelling at the joints present in the knees or ankles bilaterally, no tenderness over the Achilles; I'm able to flex and extend at the ankles with minimal discomfort. Palpation of the calf musculature is uncomfortable and triggers myoclonus, no cords palpated. Results of MRI discussed with Dr. Laird midafternoon and patient going to the OR for washout/joint aspiration. Exam is not consistent with disseminated gout or multi-joint infection. Etiology of leg symptoms unclear-cannot exclude neuropathy, possibly antibiotic induced. Will discuss further with Dr. Velasco if ongoing. Gram stain (left elbow deep wound culture)-few gram-positive cocci, moderate neutrophils 35,250 white cells-94% neutrophils and fluid aspirated from left elbow. Venous Dopplers obtained of lower legs bilaterally, reviewed by myself-no evidence of DVT Continue vancomycin. Hospital Course Summary Disclaimer: The visit summary below is not to be considered part of the above Progress Note. Hospital Course: 06/16/17-hospitalist consultation CT shows cellulitis and no evidence of osteomyelitis. Dr. Laird may take pt to OR tomorrow pending sxs/labs, etc. Continue antibiotics. He was receiving Rocephin and vancomycin at [facility]. Blood cultures are pending from [facility]. Uric acid level is normal. Patient on allopurinol chronically. Last gout flare greater than 1 year ago. Start MiraLAX and senna daily for bowel motivation as patient tends to be constipated and is being treated with narcotic pain medication. Blood pressure elevated as would be expected given his pain. Will follow pressures. Continue home lisinopril and metoprolol. Continue ranitidine for GERD. Continue allopurinol for gout., Continue Zocor for hyperlipidemia Follow creatinine given his chronic kidney disease. CODE STATUS: DO NOT RESUSCITATE SCDs for DVT prophylaxis Care to return to the [facility] clinic upon dismissal. 06/17/17 WBC improved from yesterday. 14.1-->12.7. CPK-185. CRP increased from 223-->265 MRI of the elbow showed cellulitis with evidence of myositis and possible septic arthritis. Patient was taken to surgery by Dr. Laird and joint fluid has been sent for evaluation. Dr. Velasco has been consulted and recommends continuing vancomycin and discontinuing Rocephin. Clarified with patient his prophylactic gout medication. Records from [facility] to [facility] indicated he was on allopurinol. He states he had an adverse reaction to allopurinol in the past and Dr. Zurita changed him to Uloric over 6 months ago. Hold Zocor given the pain in his legs (although it is unlikely this has anything to do with his symptoms). Bilateral Doppler of lower extremities was negative. ? etiology of his leg pain. Suspect there is some anxiety playing in to his sxs. Case discussed with Dr. Stewart. DC IV fluids later this evening if patient is taking p.o. well.
[2017-06-17] MEDS ORDERED: COLCHICINE 0.6 MG TABLET PO ONE ×2 (10:50→12:00)
[2017-06-17] MEDS ORDERED: COLCHICINE 0.6 MG TABLET PO SCH (11:00)
[2017-06-17] MEDS ORDERED: SALINE FLUSH 10ml SYRINGE ONE (11:12)
--- NOTE | 2017-06-17 12:32 | Ultrasound Report ---
Indication: bilat calf pain PROCEDURE: US venous doppler LE BI: Encounter: Initial Comparison: None Technique: Color Doppler duplex and grayscale sonographic imaging of both lower extremities was performed. Findings: There is no evidence for acute deep venous thrombosis in either thigh. Specifically, serial graded compression was performed from the inguinal ligament to the popliteal bifurcation, bilaterally, demonstrating appropriate compressibility of the deep venous system. In addition, color and pulsed Doppler demonstrate appropriate spontaneous flow, variation with respiration, and augmentation with calf compression. At the ankle, normal flow is identified in the posterior tibial veins; these vessels are also normal in caliber. Impression: No evidence of acute DVT in either lower limb. .
--- NOTE | 2017-06-17 12:46 | Magnetic Resonance Report ---
Indication: pain, swelling PROCEDURE: MR elbow LT wo/w con: Encounter: Initial Comparison: Left elbow CT from yesterday Technique: Multiplanar multisequence MR imaging of the left elbow was performed with and without contrast. Contrast: 18 mL ProHance Findings: Again subcutaneous edema is seen overlying the distal humerus and proximal forearm. Small olecranon bursa fluid collection. There is a moderate sized elbow joint effusion. The triceps tendon is intact. The biceps and brachialis tendons are intact. There is edema within the musculature surrounding the elbow joint anteriorly and posteriorly. The common flexor and extensor tendon origins appear grossly intact. No acute fracture identified. Bone marrow signal intensity is normal. The radial and ulnar collateral ligaments appear grossly intact. Motion artifact limits some of the sequences. Mild degenerative change in the radiocapitellar and ulnar trochlear joints. Postcontrast images shows rim enhancement within the fluid collection overlying the olecranon process best seen on axial postcontrast image 18 and sagittal image #13. This region of fluid measures 1.3 x 1.5 x 1.5 cm in size. There is no enhancement or edema in the adjacent proximal ulna. Impression: 1. Elbow region cellulitis with evidence of myositis and a possible septic arthritis of the elbow joint. Diagnostic elbow joint aspiration may be helpful. 2. No evidence of osteomyelitis. 3. 1.5 cm fluid collection at the olecranon process could represent olecranon bursitis or possibly a small superficial abscess. Results were discussed with the Dr. Laird at 1241 on June 17, 2017 .
[2017-06-17] MEDS ORDERED: FentaNYL 100 MCG/2 ML INJECTION IVP PRN ×2 (12:50→15:26)
--- NOTE | 2017-06-17 12:52 | Pharmacy Consult-Antibiotics ---
Pharmacy Consult-Vancomycin - Laboratory Information WBC 12.7 T/MM3 (4.5-11.0) H 06/17/17 03:54 BUN 19.0 MG/DL (9-20) 06/17/17 03:54 Creatinine 1.4 mg/dL (0.8-1.5) 06/17/17 03:54 - Consult Information With low trough will change dose to vancomycin 1250mg IV q12h. Will order trough on 06/19/18 and continue to monitor. Thank you.
--- NOTE | 2017-06-17 14:33 | Anesthesia Preoperative Report ---
Anesthesia Preoperative Record - Date and Time Date: 06/17/17 Preoperative Diagnosis: Left Elbow Infection Proposed Procedure: i&d of left elbow with exploration NPO Since Date: 06/17/17 NPO Since Time: 10:00 (sherri) Allergies/Adverse Reactions: Allergies Allergy/AdvReac Type Severity Reaction Status Date / Time No Known Allergies Allergy Verified 06/16/17 12:30 - Vital Signs Vital Signs: Temperature 98.2 F 06/17/17 07:18 Pulse Rate 82 06/17/17 07:18 Respiratory Rate 12 06/17/17 07:18 Blood Pressure 147/83 H 06/17/17 07:18 Pulse Oximetry 94 06/17/17 07:18 Height and Weight: Height 1.77 m Weight 90.1 kg Body Mass Index 29.5 - Medications Inpatient Medications: Current Medications Febuxostat (Uloric) 40 mg PO QDRHS [facility] Last Admin: 06/16/17 17:18 Dose: 40 mg Fentanyl (Fentanyl) 25 - 50 mcg IVP Q3H PRN Last Admin: 06/17/17 12:56 Dose: 25 mcg Vancomycin HCl 1,250 mg/ (Sodium Chloride) 250 mls @ 200 mls/hr IV Q18H [facility] Last Infusion: 06/17/17 14:19 Dose: Infused Sodium Chloride (Normal Saline) 1,000 mls @ 100 mls/hr IV .Q10H [facility] Last Infusion: 06/17/17 14:19 Dose: 0 mls/hr Lisinopril (Prinivil) 5 mg PO DAILY [facility] Last Admin: 06/17/17 08:49 Dose: 5 mg Metoprolol Tartrate (Lopressor) 25 mg PO WB [facility] Last Admin: 06/17/17 08:49 Dose: 25 mg Morphine Sulfate (Morphine Sulfate Inj) 2 - 4 mg IVP Q2HR PRN PRN Reason: Pain Last Admin: 06/17/17 10:40 Dose: 4 mg Oxycodone/Acetaminophen (Percocet 5/325) 1 - 2 tab PO Q4H PRN PRN Reason: Pain Last Admin: 06/16/17 15:42 Dose: 2 tab Polyethylene Glycol (Miralax) 17 gm PO DAILY [facility] Last Admin: 06/17/17 09:34 Dose: Not Given Ranitidine HCl (Zantac) 150 mg PO QAM [facility] Last Admin: 06/17/17 08:49 Dose: Not Given Senna (Senna Lax) 17.2 mg PO [facility] Last Admin: 06/16/17 20:49 Dose: 17.2 mg Simvastatin (Zocor) 20 mg PO [facility] Last Admin: 06/16/17 20:49 Dose: 20 mg Sodium Chloride (Normal Saline) 500 ml IV PRN PRN Home Medications: Home Medications Medication Instructions Recorded Confirmed Type Febuxostat [Uloric] 40 mg PO QDRHS 06/16/17 06/16/17 History Lisinopril [Prinivil] 5 mg PO DAILY 06/16/17 06/16/17 History Metoprolol Tartrate [Lopressor] 25 mg PO WB 06/16/17 06/16/17 History Ranitidine [Zantac] 150 mg PO QAM 06/16/17 06/16/17 History Simvastatin [Zocor] 20 mg PO HS 06/16/17 06/16/17 History Is Patient on Beta Mikki?: Yes Beta Mikki Last Dose Date/Time: 0900 - Medical History Respiratory: DENIES: Sleep Apnea Cardiovascular: Reports: Hypertension, High Cholesterol - Surgical History GI Surgery/Treatments: Reports: Appendectomy Musculoskeletal Surgery/Tx: Reports: Other (left elbow ) Anesthesia Reactions: None Hx Family Anesthesia Reaction: No - Social History Smoking Status: Current some day smoker (smokes and he goes to the [employer], otherwise, quit smoking regularly over 10 years ago) Hx Chewing Tobacco Use: Yes Substance Use Type: does not use Alcohol Intake Frequency: a few times a month - Pertinent Findings Laboratory: CBC and BMP 06/17/17 03:54 06/17/17 03:54 BMP 06/17/17 03:54 Sodium 141 Potassium 3.9 Chloride 104 Carbon Dioxide 24 BUN 19.0 Creatinine 1.4 Glucose 105 Calcium 9.4 Cardiac Enzymes 06/17/17 06/17/17 Range/Units 03:54 09:16 Total Creatine Kinase 185 H 195 H (55-170) U/L EKG: Sinus Rhythm - Physical Exam Respiratory Exam: Present: lungs clear, bilateral breath sounds equal Cardiovascular Exam: Present: regular rate and rhythm, no murmur - Airway Assessment Mallampati Score: I TMD: 3 Fingerbreadths Neck Extension: good Teeth: upper dentures, lower dentures Overall Assessment: no airway concerns - ASA ASA Score: 3 - Plan Anesthesia: General TIVA, General Inhalation Gases - Discussion Discussion: Discussed risks/options/alternatives of anesthesia and questions answered. Patient consents. Nursing pain assessment noted. Attestation Statement: Prior to the delivery of any anesthetic medication, I examined the patient, developed the plan, obtained the patient's consent and discussed the risk and benefits of the procedure with the patient/guardian. - Additional Information Seen by Anesthesia: Yes
[2017-06-17] MEDS ORDERED: NS 1,000 ML IV SCH (14:45)
[2017-06-17] MEDS ORDERED: FentaNYL 250 MCG/5 ML INJECTION ONE (14:47)
[2017-06-17] MEDS ORDERED: KETAMINE 500 MG/10 ML INJECTION ONE (14:47)
[2017-06-17] MEDS ORDERED: PROPOFOL 500 MG/50 ML VIAL ONE (14:48)
[2017-06-17] MEDS ORDERED: BUPIVACAINE 0.25%/EPI 1:200,000 30ml SDV ONE (15:17)
[2017-06-17] MEDS ORDERED: LIDOCAINE 1% (10mg/ml) 30ml SDV INJ ONE (15:17)
[2017-06-17] MEDS ORDERED: ONDANSETRON 4 MG/2 ML INJECTION ONE (15:18)
[2017-06-17] MEDS ORDERED: DEXAMETHASONE 4 MG/ML INJECTION ONE (15:18)
[2017-06-17] MEDS ORDERED: BUPIV 0.25% 30ml/LIDO 1% 30ml MIXTURE ID ONE (15:20)
[2017-06-17] MEDS ORDERED: HYDROMORPHONE 2 MG/ML INJECTION IVP PRN (15:26)
[2017-06-17] MEDS ORDERED: PROPOFOL 20 ML ONE (15:39)
[2017-06-17] MEDS ORDERED: MIDAZOLAM 2mg/2ml INJECTION ONE (15:52)
--- NOTE | 2017-06-17 16:10 | Anesthesia Postoperative Note ---
- Date and Time Date: 06/17/17 Time: 16:12 - Status Patient Participated in Evaluation: Patient Participated in Person Vital Signs: Temperature 98.0 F 06/17/17 14:41 Pulse Rate 86 06/17/17 14:43 Respiratory Rate 14 06/17/17 14:41 Blood Pressure 155/79 H 06/17/17 14:41 Pulse Oximetry 96 06/17/17 14:41 Respiratory Function: Airway Patent Cardiovascular Function: Regular Pulse EKG: Sinus Rhythm Mental Status: Lethargic Pain Intensity: 0 Hydration: IV Infusing Complications During Recover: None Apparent - Follow-Up Instructions Instructions: Per Surgeon
[2017-06-17] MEDS: SENNOSIDES 8.6 MG TABLET PO SCH (20:07)
[2017-06-17] MEDS: FEBUXOSTAT 40 MG TABLET PO SCH (20:07)
[2017-06-17] MEDS ORDERED: SIMVASTATIN 20 MG TABLET PO SCH (21:00)
[2017-06-18] MEDS: NS 1,000 ML IV SCH (05:29)
[2017-06-18] MEDS: LISINOPRIL 5 MG TABLET PO SCH (08:47)
[2017-06-18] MEDS: RANITIDINE 150 MG TABLET PO SCH (08:47)
[2017-06-18] MEDS: POLYETHYL GLYCOL 3350 17gm PACKET PO SCH (08:47)
--- NOTE | 2017-06-18 09:15 | Orthopedic Progress Note ---
Date: Date: 06/18/17 Time: 911 Subjective/Severity of Illness: Chetan is sitting up in his bed this morning when I visit. States overall his pain has improved. He has improved ROM of left elbow this morning. His legs do not hurt lying in bed as they did yesterday. Reports pain 7/10 with ambulation. Culture of deep left elbow wound from OR shows few positive cocci this morning. Remains on Vancomycin and Rocephin. WBC increased to 14.8. Denies feeling feverish, chills, shortness of breathe, chest pain, nausea. Orthopedic Exam Vital signs: Temperature 97.7 F 06/18/17 07:46 Pulse Rate 68 06/18/17 07:46 Respiratory Rate 20 06/18/17 07:46 Blood Pressure 144/78 H 06/18/17 07:46 Pulse Oximetry 94 06/18/17 07:46 - Constitutional General Appearance: Present: alert, orientated x3, no acute distress, well developed, well nourished - Respiratory Exam Present: non-labored - Cardiovascular Exam Present: pedal pulses intact - Extremities Exam Present: no edema, normal capillary refill. Absent: calf tenderness - Dressing Dressing: dry, intact Comments: APPLE to left elbow, packing in wound, surgical incision with sutures intact. - Integumentary Exam Present: pink, warm, dry - Lymphatic Lymphatic: Present: adenopathy - Neurological Exam Present: intact to light touch, no deficits - Psychiatric Exam Present: alert, oriented - Labs Result Diagrams: 06/18/17 03:45 06/17/17 03:54 Abnormal lab results 06/17/17 06/17/17 06/17/17 Range/Units 09:16 15:19 15:19 WBC (4.5-11.0) T/MM3 RBC (4.50-5.90) M/MM3 Hgb (13.5-17.5) GM/DL Hct (41-53) % Neut % (Auto) (33-66) % Lymph % (Auto) (23-45) % [place] % (Auto) (0-9.0) % Neut # (Auto) (1.8-7.7) T/MM3 [place] # (Auto) (0-0.8) T/MM3 Total Creatine Kinase 195 H (55-170) U/L Fluid Crystal Quantity Many A Fluid Crystal Appear Cloudy A Bloody A Fluid Crystal Color Yellow A Red A Synov Intracell Crystal Both A Synovial Crystal Type Uric acid A 06/18/17 Range/Units 03:45 WBC 14.8 H (4.5-11.0) T/MM3 RBC 4.06 L (4.50-5.90) M/MM3 Hgb 13.0 L (13.5-17.5) GM/DL Hct 38.6 L (41-53) % Neut % (Auto) 80.8 H (33-66) % Lymph % (Auto) 8.9 L (23-45) % [place] % (Auto) 10.0 H (0-9.0) % Neut # (Auto) 12.0 H (1.8-7.7) T/MM3 [place] # (Auto) 1.5 H (0-0.8) T/MM3 Total Creatine Kinase (55-170) U/L Fluid Crystal Quantity Fluid Crystal Appear Fluid Crystal Color Synov Intracell Crystal Synovial Crystal Type H & H 06/17/17 06/18/17 Range/Units 03:54 03:45 Hgb 14.1 13.0 L (13.5-17.5) GM/DL Hct 41.0 38.6 L (41-53) % Orthopedic Assessment and Plan (1) Cellulitis of left elbow Status: Acute Assessment and Plan: Overall erythema and edema of left elbow improved today. Idoafoam packed in left abscess wound, change daily. (2) Septic joint of left elbow Status: Acute Assessment and Plan: Gram positive cocci present on prelim gram stain. Dr. Velasco consulted for antibiotic management, continuing Vanco and Rocephin at this time. PICC line to be placed. Hospitalist for medical management, HTN, CKD. Uric acid noted on crystals from left elbow aspiration- hospitalist treating acute gout. Hospital Course Summary Disclaimer: The visit summary below is not to be considered part of the above Progress Note. Hospital Course: 06/16/17-hospitalist consultation CT shows cellulitis and no evidence of osteomyelitis. Dr. Laird may take pt to OR tomorrow pending sxs/labs, etc. Continue antibiotics. He was receiving Rocephin and vancomycin at [facility]. Blood cultures are pending from [facility]. Uric acid level is normal. Patient on allopurinol chronically. Last gout flare greater than 1 year ago. Start MiraLAX and senna daily for bowel motivation as patient tends to be constipated and is being treated with narcotic pain medication. Blood pressure elevated as would be expected given his pain. Will follow pressures. Continue home lisinopril and metoprolol. Continue ranitidine for GERD. Continue allopurinol for gout., Continue Zocor for hyperlipidemia Follow creatinine given his chronic kidney disease. CODE STATUS: DO NOT RESUSCITATE SCDs for DVT prophylaxis Care to return to the [facility] clinic upon dismissal. 06/17/17 WBC improved from yesterday. 14.1-->12.7. CPK-185. CRP increased from 223-->265 MRI of the elbow showed cellulitis with evidence of myositis and possible septic arthritis. Patient was taken to surgery by Dr. Laird and joint fluid has been sent for evaluation. Dr. Velasco has been consulted and recommends continuing vancomycin and discontinuing Rocephin. Clarified with patient his prophylactic gout medication. Records from [facility] indicated he was on allopurinol. He states he had an adverse reaction to allopurinol in the past and Dr. Zurita changed him to Uloric over 6 months ago. Hold Zocor given the pain in his legs (although it is unlikely this has anything to do with his symptoms). Bilateral Doppler of lower extremities was negative. ? etiology of his leg pain. Suspect there is some anxiety playing in to his sxs. Case discussed with Dr. Stewart. DC IV fluids later this evening if patient is taking p.o. well.
--- NOTE | 2017-06-18 10:24 | Progress Note ---
- Date 06/18/17 Subjective: Pt seen this am sitting in bed. He is having less pain in his LE's and was able to walk to the bathroom this am. Pain in the L elbow is less. No CP, SOA , n/v. No BM for 5 days but not feeling uncomfortable. Passing gas. Appetite is ok. No fevers. Objective Vital signs: Temperature 97.7 F 06/18/17 07:46 Pulse Rate 68 06/18/17 07:46 Respiratory Rate 20 06/18/17 07:46 Blood Pressure 144/78 H 06/18/17 07:46 Pulse Oximetry 94 06/18/17 07:46 Height/Weight/BMI: Height 1.77 m Weight 91.2 kg Body Mass Index 29.5 - Constitutional Present: no acute distress, well nourished, well developed - Routine HEENT Exam Head: Present: normocephalic, atraumatic - Routine Respiratory Exam Present: CTA bilaterally. Absent: wheezes - Routine Cardiovascular Exam Present: RRR, no murmur - Routine Abdominal Exam Present: soft, normoactive bowel sounds, non distended, non tender - Routine Extremities Exam Present: no edema, normal capillary refill Comments: no swelling or redness to the LE's. FROM. Minimal pain with palpation in the L foot. - Routine Skin Exam Present: dry, warm - Routine Neurological Exam Present: alert, oriented X3 - Routine Lymphatic Exam Lymphatic: Absent: adenopathy - Routine Psychiatric Exam Present: normal affect, cooperative Results - Labs CBC & Chem 7: 06/18/17 03:45 06/17/17 03:54 Microbiology Results: Microbiology 06/17/17 15:21 Elbow, Left Gram Stain - Final 06/17/17 15:21 Elbow, Left Deep Wound Culture - Preliminary Culture Initiated - Results Pending 06/17/17 15:19 Elbow, Left Gram Stain - Final 06/17/17 15:19 Elbow, Left Deep Wound Culture - Preliminary Culture Initiated - Results Pending Assessment and Plan (1) Cellulitis of left elbow Current visit: Yes Status: Acute Assessment and Plan: Assessment Cellulitis left elbow-rule out septic joint versus gout Leukocytosis Lower leg pain (acute onset overnight for 4/3-06/17-from knees to feet) - question etiology Acute gout Chronic/associated conditions Hypertension Chronic gout Chronic kidney disease Hyperlipidemia GERD Plan Uric acid crystals found in joint fluid - start indomethacin. On ranitidine for GERD. Follow renal function. Continue vancomycin. Gram positive cocci on gram stain. Leg pain improved, although after I had seen pt, nurse called me and reports pt started having pain when she resumed the SCD's. DC SCD's and start lovenox. DC IVF's. GI Prophylaxis: other (ranitidine) Resuscitation Status: Do Not Resuscitate - Physician Narrative Physician: Priya Stewart MD Narrative: Date: 06/18/17 Time: 1629 Mr. Yu was seen earlier today at which time he described improvement in pain in the elbow and in his legs such that he is able to walk today. He denied fever overnight. Patient is more interactive/talkative today Left elbow wrapped following surgery yesterday; knees/ankles without soft tissue swelling or erythema and minimal tenderness to palpation Mild discomfort on palpation of the calves and patient is slightly jumpy when legs are palpated but appears to anticipate pain and jumps before pressure is exerted -Jokes about going home and having a drink to settle his leg/nerves down Surgical cultures pending; many uric acid crystals including intracellular uric acid crystals described in synovial fluid obtained yesterday. Will treat with for acute monoarticular gout; exam is not suggestive of gouty inflammation in the lower extremities. Given presence of gram-positive cocci in synovial fluid antibiotics will need to be continued pending culture results which-was pretreated with antibiotics prior to obtaining sample. We will discuss duration of treatment with Dr. Velasco. Claritza Landry discussed plans with orthopedics earlier today. Hospital Course Summary Disclaimer: The visit summary below is not to be considered part of the above Progress Note. Hospital Course: 06/16/17-hospitalist consultation CT shows cellulitis and no evidence of osteomyelitis. Dr. Laird may take pt to OR tomorrow pending sxs/labs, etc. Continue antibiotics. He was receiving Rocephin and vancomycin at [facility]. Blood cultures are pending from [facility]. Uric acid level is normal. Patient on allopurinol chronically. Last gout flare greater than 1 year ago. Start MiraLAX and senna daily for bowel motivation as patient tends to be constipated and is being treated with narcotic pain medication. Blood pressure elevated as would be expected given his pain. Will follow pressures. Continue home lisinopril and metoprolol. Continue ranitidine for GERD. Continue allopurinol for gout., Continue Zocor for hyperlipidemia Follow creatinine given his chronic kidney disease. CODE STATUS: DO NOT RESUSCITATE SCDs for DVT prophylaxis Care to return to the [facility] medical clinic upon dismissal. 06/17/17 WBC improved from yesterday. 14.1-->12.7. CPK-185. CRP increased from 223-->265 MRI of the elbow showed cellulitis with evidence of myositis and possible septic arthritis. Patient was taken to surgery by Dr. Laird and joint fluid has been sent for evaluation. Dr. Velasco has been consulted and recommends continuing vancomycin and discontinuing Rocephin. Clarified with patient his prophylactic gout medication. Records from [facility] indicated he was on allopurinol. He states he had an adverse reaction to allopurinol in the past and Dr. Zurita changed him to Uloric over 6 months ago. Hold Zocor given the pain in his legs (although it is unlikely this has anything to do with his symptoms). Bilateral Doppler of lower extremities was negative. ? etiology of his leg pain. Suspect there is some anxiety playing in to his sxs. Case discussed with Dr. Stewart. DC IV fluids later this evening if patient is taking p.o. well. 06/18/17 Uric acid crystals found in joint fluid - start indomethacin. On ranitidine for GERD. Follow renal function. Continue vancomycin. Gram positive cocci on gram stain. Leg pain improved, although after I had seen pt, nurse called me and reports pt started having pain when she resumed the SCD's. DC SCD's and start lovenox. DC IV fluids.
[2017-06-18] MEDS: ENOXAPARIN 40 MG/0.4 ML INJECTION SQ SCH (11:16)
[2017-06-18] MEDS: INDOMETHACIN 25 MG CAPSULE PO SCH ×2 (12:53→17:17)
[2017-06-18] MEDS: FEBUXOSTAT 40 MG TABLET PO SCH (16:01)
--- NOTE | 2017-06-18 16:09 | Operative Note ---
DATEOFOPERATION PREOPERATIVE DIAGNOSIS Possible left elbow septic arthritis. POSTOPERATIVE DIAGNOSIS Possible left elbow septic arthritis. PROCEDURE Irrigation and debridement left elbow joint with incision and drainage of left elbow abscess. SURGEON Zay Laird MD INSTRUCTION DEAN Sapna Barrow APRN COMPLICATIONS None ANESTHESIA General DESCRIPTION OFPROCEDURE Mr. Hernandez and his left elbow were identified and marked in the preoperative holding area. He was brought back to the operating suite and placed supine on the operating table. He was placed under general anesthesia. The left upper extremity was prepped and draped in my normal sterile fashion and placed onto an arm board. Time-out was performed. The arm was elevated and the tourniquet inflated to 250 mmHg. I started by attempting aspiration of the abscess which was over the proximal olecranon. This was done with an 18-gauge needle. I did get a good return of fluid and this was sent off for culture. I then made a Merly approach to the elbow laterally; sharp dissection was carried through the skin and subcutaneous tissue. I then palpated for the joint between the radial head and the capitellum and aspirated the joint with an 18-gauge needle. I got a good return of somewhat cloudy yellow fluid. It was not nubia pus. This was also sent for culture separately. I then made a capsulotomy so I was able to enter into the joint and proceeded to irrigate the joint out with three liters of normal saline. This was done first with cysto tubing and then I used a 14-gauge angio-cath so I could ensure that I got the entire joint well irrigated out. After this was done, the capsulotomy was repaired with 2-0 Vicryl , subcutaneous tissue was also repaired with 2-0 Vicryl and the skin was closed with 3-0 nylon. I then made an incision over the olecranon approximately 2 cm in length down over where I had earlier aspirated the abscess. Sharp dissection was carried down to the bone and this area was fully irrigated with another three liters of normal saline. This wound was left open. We packed it with Iodoform gauze. Xeroform was placed over the Merly approach incision followed by Kerlix and then an Andrew bandage. The drapes were removed. The tourniquet was let down and he was allowed to awake from general anesthesia and taken to the recovery room under the care of Anesthesia. He tolerated the procedure well and there were no complications. MEDARDO
[2017-06-18] MEDS: SENNOSIDES 8.6 MG TABLET PO SCH (20:11)
[2017-06-19] MEDS: INDOMETHACIN 25 MG CAPSULE PO SCH ×3 (08:23→17:23)
[2017-06-19] MEDS: ENOXAPARIN 40 MG/0.4 ML INJECTION SQ SCH (08:23)
[2017-06-19] MEDS: RANITIDINE 150 MG TABLET PO SCH (08:23)
[2017-06-19] MEDS: POLYETHYL GLYCOL 3350 17gm PACKET PO SCH (08:25)
[2017-06-19] MEDS: LISINOPRIL 5 MG TABLET PO SCH (08:25)
--- NOTE | 2017-06-19 10:34 | Orthopedic Progress Note ---
Date: Date: 06/19/17 Time: 1031 Subjective/Severity of Illness: Chetan is sitting up in bed this morning, overall feeling much better. States his pain is well controlled. Improved ROM of left elbow, and of lower extremities. Is able to ambulate now with decreased pain. Dressing taken down and decreased swelling and erythema surrounding left elbow incisions. WBC improved today. Denies fever, chills, nausea. 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 Will discuss FMLA with case management. Orthopedic Exam Vital signs: Temperature 97.7 F 06/18/17 07:46 Pulse Rate 68 06/18/17 07:46 Respiratory Rate 20 06/18/17 07:46 Blood Pressure 144/78 H 06/18/17 07:46 Pulse Oximetry 94 06/18/17 07:46 - Constitutional General Appearance: Present: alert, orientated x3, no acute distress, well developed, well nourished - Respiratory Exam Present: non-labored - Cardiovascular Exam Present: pedal pulses intact - Extremities Exam Present: no edema, normal capillary refill - Dressing Dressing: dry, intact Comments: packing to left medial surgical wound site. Surgical incision left lateral elbow, edges well approximated, sutures intact. xeroform and gauze dressing. Erythema and edema improved. - Integumentary Exam Present: pink, warm - Lymphatic Lymphatic: Absent: adenopathy - Neurological Exam Present: intact to light touch, no deficits - Psychiatric Exam Present: alert, oriented - Labs Result Diagrams: 06/19/17 03:52 06/19/17 03:52 Abnormal lab results 06/18/17 06/19/17 06/19/17 Range/Units 23:45 03:52 03:52 WBC 12.5 H (4.5-11.0) T/MM3 RBC 3.83 L (4.50-5.90) M/MM3 Hgb 12.3 L (13.5-17.5) GM/DL Hct 36.3 L (41-53) % [place] % (Auto) 9.4 H (0-9.0) % Neut # (Auto) 8.1 H (1.8-7.7) T/MM3 [place] # (Auto) 1.2 H (0-0.8) T/MM3 Sodium 146 H (134-144) MEQ/L Chloride 110 H (98-107) MEQ/L BUN 30.0 H D (9-20) MG/DL Calculated Osmolality 287 H (261-280) MOSM/KG Vancomycin Trough 10.10 L (15-20) ug/mL H & H 06/17/17 06/18/17 06/19/17 Range/Units 03:54 03:45 03:52 Hgb 14.1 13.0 L 12.3 L (13.5-17.5) GM/DL Hct 41.0 38.6 L 36.3 L (41-53) % Orthopedic Assessment and Plan (1) Cellulitis of left elbow Status: Acute Assessment and Plan: Overall erythema and edema of left elbow continues to improve. Improved ROM. Idoafoam packed in left abscess wound, change daily, cover with gauze. (2) Septic joint of left elbow Status: Acute Assessment and Plan: Improved ROM and pain control. Gram positive cocci present on prelim gram stain. Dr. Velasco consulted for antibiotic management. PICC line in place for group home treatment. Hospitalist for medical management, HTN, CKD, acute gout. Hospital Course Summary Disclaimer: The visit summary below is not to be considered part of the above Progress Note. Hospital Course: 06/16/17-hospitalist consultation CT shows cellulitis and no evidence of osteomyelitis. Dr. Laird may take pt to OR tomorrow pending sxs/labs, etc. Continue antibiotics. He was receiving Rocephin and vancomycin at [facility]. Blood cultures are pending from [facility]. Uric acid level is normal. Patient on allopurinol chronically. Last gout flare greater than 1 year ago. Start MiraLAX and senna daily for bowel motivation as patient tends to be constipated and is being treated with narcotic pain medication. Blood pressure elevated as would be expected given his pain. Will follow pressures. Continue home lisinopril and metoprolol. Continue ranitidine for GERD. Continue allopurinol for gout., Continue Zocor for hyperlipidemia Follow creatinine given his chronic kidney disease. CODE STATUS: DO NOT RESUSCITATE SCDs for DVT prophylaxis Care to return to the [facility] medical clinic upon dismissal. 06/17/17 WBC improved from yesterday. 14.1-->12.7. CPK-185. CRP increased from 223-->265 MRI of the elbow showed cellulitis with evidence of myositis and possible septic arthritis. Patient was taken to surgery by Dr. Laird and joint fluid has been sent for evaluation. Dr. Velasco has been consulted and recommends continuing vancomycin and discontinuing Rocephin. Clarified with patient his prophylactic gout medication. Records from [facility] indicated he was on allopurinol. He states he had an adverse reaction to allopurinol in the past and Dr. Zurita changed him to Uloric over 6 months ago. Hold Zocor given the pain in his legs (although it is unlikely this has anything to do with his symptoms). Bilateral Doppler of lower extremities was negative. ? etiology of his leg pain. Suspect there is some anxiety playing in to his sxs. Case discussed with Dr. Stewart. DC IV fluids later this evening if patient is taking p.o. well. 06/18/17 Uric acid crystals found in joint fluid - start indomethacin. On ranitidine for GERD. Follow renal function. Continue vancomycin. Gram positive cocci on gram stain. Leg pain improved, although after I had seen pt, nurse called me and reports pt started having pain when she resumed the SCD's. DC SCD's and start lovenox. DC IV fluids.
--- NOTE | 2017-06-19 11:06 | Pharmacy Consult-Antibiotics ---
Pharmacy Consult-Vancomycin - Laboratory Information WBC 12.5 T/MM3 (4.5-11.0) H 06/19/17 03:52 BUN 30.0 MG/DL (9-20) H D 06/19/17 03:52 Creatinine 1.4 mg/dL (0.8-1.5) 06/19/17 03:52 Vancomycin Trough 10.10 ug/mL (15-20) L 06/18/17 23:45 - Consult Information With a low trough we shortened the interval and slightly decreased the dose ( vancomycin now 1 gram IV q12h). Will continue to follow. Thank you.
--- NOTE | 2017-06-19 15:28 | Progress Note ---
- Date 06/19/17 Subjective: Mr. Hernandez was seen with his at the bedside. He reports he is ready to go home. Pain in his elbow is much improved and is able to almost fully extend the left arm. He's having no difficulty with pain in his legs today and is able to stand and ambulate. He denied dyspnea or nausea. Appetite is good. PT goals have been met. Objective Vital signs: Temperature 97.7 F 06/19/17 14:55 Pulse Rate 56 L 06/19/17 14:55 Respiratory Rate 14 06/19/17 14:55 Blood Pressure 134/71 06/19/17 14:55 Pulse Oximetry 95 - RA 06/19/17 14:55 NAD, alert Respirations nonlabored, good airflow, breath sounds clear Regular rhythm, S1-S2 Abdomen soft, nontender Extremities without edema, calves nontender today Minor residual edema in the left hand/forearm, extending left arm to approximately 80. Height/Weight/BMI: Height 1.77 m Weight 90.4 kg Body Mass Index 29.5 Results - Labs CBC & Chem 7: 06/19/17 03:52 06/19/17 03:52 Labs: CPK 116 Microbiology Results: Microbiology 06/17/17 15:19 Elbow, Left Gram Stain - Final 06/17/17 15:19 Elbow, Left Deep Wound Culture - Preliminary No Growth After 1 Day 06/17/17 15:21 Elbow, Left Gram Stain - Final 06/17/17 15:21 Elbow, Left Deep Wound Culture - Preliminary No Growth After 1 Day Assessment and Plan (1) Cellulitis of left elbow Current visit: Yes Status: Acute (2) Gout Current visit: Yes Status: Acute (3) Septic joint of left elbow Current visit: Yes Status: Acute Assessment and Plan: Assessment Cellulitis left elbow-rule out septic joint versus gout Leukocytosis Lower leg pain (acute onset overnight for 3-06/17-from knees to feet) - question etiology Acute gout Chronic/associated conditions Hypertension Chronic gout Chronic kidney disease Hyperlipidemia GERD Plan Clinically improved with combined treatment for septic arthritis and acute gout. Cultures pending but with gram-positive bacteria seen on Gram stain's anticipate continuation of antibiotics. Discharge on hold for culture results. If cultures negative will discharge either on vancomycin or daptomycin 6 mg/kg per day. Discussed with Dr. Velasco and orthopedics. Continue indomethacin for gout, renal function stable. Discussed with case management several times for at the day to coordinate outpatient antibiotics at discharge which is likely to occur over the weekend. DVT Prophylaxis: Lovenox GI Prophylaxis: Rantidine, other Resuscitation Status: Do Not Resuscitate - Physician Narrative Narrative: Date: 06/19/17 Time: 1525 Hospital Course Summary Disclaimer: The visit summary below is not to be considered part of the above Progress Note. Hospital Course: 06/16/17-hospitalist consultation CT shows cellulitis and no evidence of osteomyelitis. Dr. Laird may take pt to OR tomorrow pending sxs/labs, etc. Continue antibiotics. He was receiving Rocephin and vancomycin at [facility]. Blood cultures are pending from [facility]. Uric acid level is normal. Patient on allopurinol chronically. Last gout flare greater than 1 year ago. Start MiraLAX and senna daily for bowel motivation as patient tends to be constipated and is being treated with narcotic pain medication. Blood pressure elevated as would be expected given his pain. Will follow pressures. Continue home lisinopril and metoprolol. Continue ranitidine for GERD. Continue allopurinol for gout., Continue Zocor for hyperlipidemia Follow creatinine given his chronic kidney disease. CODE STATUS: DO NOT RESUSCITATE SCDs for DVT prophylaxis Care to return to the [facility] medical clinic upon dismissal. 06/17/17 WBC improved from yesterday. 14.1-->12.7. CPK-185. CRP increased from 223-->265 MRI of the elbow showed cellulitis with evidence of myositis and possible septic arthritis. Patient was taken to surgery by Dr. Laird and joint fluid has been sent for evaluation. Dr. Velasco has been consulted and recommends continuing vancomycin and discontinuing Rocephin. Clarified with patient his prophylactic gout medication. Records from [facility] indicated he was on allopurinol. He states he had an adverse reaction to allopurinol in the past and Dr. Zurita changed him to Uloric over 6 months ago. Hold Zocor given the pain in his legs (although it is unlikely this has anything to do with his symptoms). Bilateral Doppler of lower extremities was negative. ? etiology of his leg pain. Suspect there is some anxiety playing in to his sxs. Case discussed with Dr. Stewart. DC IV fluids later this evening if patient is taking p.o. well. 06/18/17 Uric acid crystals found in joint fluid - start indomethacin. On ranitidine for GERD. Follow renal function. Continue vancomycin. Gram positive cocci on gram stain. Leg pain improved, although after I had seen pt, nurse called me and reports pt started having pain when she resumed the SCD's. DC SCD's and start lovenox. DC IV fluids. 06/19/17 Clinically improved with combined treatment for septic arthritis and acute gout. Cultures pending but with gram-positive bacteria seen on Gram stain's anticipate continuation of antibiotics. Discharge on hold for culture results. If cultures negative will discharge either on vancomycin or daptomycin 6 mg/kg per day. Discussed with Dr. Velasco and orthopedics. Continue indomethacin for gout, renal function stable.
[2017-06-19] MEDS: FEBUXOSTAT 40 MG TABLET PO SCH (15:32)
[2017-06-19] MEDS: SENNOSIDES 8.6 MG TABLET PO SCH (22:22)
[2017-06-20] MEDS: Oxycodone/Acetaminophen 5/325 1 TAB PO PRN (05:53)
[2017-06-20 07:24] VITALS: O2SAT 94
[2017-06-20] MEDS ORDERED: INDOMETHACIN 25 MG CAPSULE PO SCH (08:00)
[2017-06-20] MEDS: RANITIDINE 150 MG TABLET PO SCH (08:39)
[2017-06-20] MEDS: LISINOPRIL 5 MG TABLET PO SCH (08:40)
[2017-06-20] MEDS: ENOXAPARIN 40 MG/0.4 ML INJECTION SQ SCH (08:40)
[2017-06-20] MEDS: POLYETHYL GLYCOL 3350 17gm PACKET PO SCH (08:41)
--- NOTE | 2017-06-20 09:49 | Orthopedic Progress Note ---
Date: Date: 06/20/17 Time: 944 Subjective/Severity of Illness: Chetan is sitting up in bed this morning. States he is eager to be discharged. WBC remains stable at 12.4. Pain continues to improve with left elbow. Has been ambulating well without lower extremity discomfort. Has been attempting ROM, difficult with APPLE wrap. States he did not have full extension prior to hospitalization either. Orthopedic Exam Vital signs: Temperature 97.7 F 06/18/17 07:46 Pulse Rate 68 06/18/17 07:46 Respiratory Rate 20 06/18/17 07:46 Blood Pressure 144/78 H 06/18/17 07:46 Pulse Oximetry 94 06/18/17 07:46 - Constitutional General Appearance: Present: alert, orientated x3, no acute distress, well developed, well nourished - Respiratory Exam Present: non-labored - Cardiovascular Exam Present: pedal pulses intact - Extremities Exam Present: no edema, normal capillary refill. Absent: calf tenderness - Dressing Comments: Left lateral wound with idoform packing. Removed, serous drainage noted. Wound bed with granulated tissue. Repacked with iodoform and covered with gauze, keflex, and apple wrap. Surgical incision edges well approximated, sutures intact. No erythema, drainage , s/s of infection noted. - Detailed Upper Extremity Exam Elbow: Left decreased ROM - Integumentary Exam Present: pink, warm - Lymphatic Lymphatic: Absent: adenopathy - Neurological Exam Present: intact to light touch, no deficits - Psychiatric Exam Present: alert, oriented - Labs Result Diagrams: 06/20/17 04:05 06/20/17 04:05 Abnormal lab results 06/20/17 06/20/17 Range/Units 04:05 04:05 RBC 3.89 L (4.50-5.90) M/MM3 Hgb 12.4 L (13.5-17.5) GM/DL Hct 36.7 L (41-53) % [place] % (Auto) 9.1 H (0-9.0) % Eos % (Auto) 4.7 H (0-4) % [place] # (Auto) 1.0 H (0-0.8) T/MM3 Sodium 146 H (134-144) MEQ/L Chloride 112 H (98-107) MEQ/L BUN 29.0 H (9-20) MG/DL Calculated Osmolality 286 H (261-280) MOSM/KG H & H 06/17/17 06/18/17 06/19/17 Range/Units 03:54 03:45 03:52 Hgb 14.1 13.0 L 12.3 L (13.5-17.5) GM/DL Hct 41.0 38.6 L 36.3 L (41-53) % 06/20/17 Range/Units 04:05 Hgb 12.4 L (13.5-17.5) GM/DL Hct 36.7 L (41-53) % Orthopedic Assessment and Plan (1) Cellulitis of left elbow Status: Acute Assessment and Plan: Overall erythema and edema of left elbow continues to improve. Improved ROM. Iodoform packed in left abscess wound, change daily, cover with gauze, kerlex, and apple wrap. (2) Septic joint of left elbow Status: Acute Assessment and Plan: Gram positive cocci present on gram stain. Cultures negative after [address] Velasco will switch to Daptomycin 6mg/kg today at 1pm. Plan discharge afterwards and receive outpatient infusions at [facility] starting tomorrow. Discussed with case management, will also have patient receive daily wound dressing changes at the same time. Discharge home with PICC line in place for IV antibiotics x 6 weeks. Hospitalist for medical management, HTN, CKD, acute gout. Hospital Course Summary Disclaimer: The visit summary below is not to be considered part of the above Progress Note. Hospital Course: 06/16/17-hospitalist consultation CT shows cellulitis and no evidence of osteomyelitis. Dr. Laird may take pt to OR tomorrow pending sxs/labs, etc. Continue antibiotics. He was receiving Rocephin and vancomycin at [facility]. Blood cultures are pending from [facility]. Uric acid level is normal. Patient on allopurinol chronically. Last gout flare greater than 1 year ago. Start MiraLAX and senna daily for bowel motivation as patient tends to be constipated and is being treated with narcotic pain medication. Blood pressure elevated as would be expected given his pain. Will follow pressures. Continue home lisinopril and metoprolol. Continue ranitidine for GERD. Continue allopurinol for gout., Continue Zocor for hyperlipidemia Follow creatinine given his chronic kidney disease. CODE STATUS: DO NOT RESUSCITATE SCDs for DVT prophylaxis Care to return to the [facility] medical clinic upon dismissal. 06/17/17 WBC improved from yesterday. 14.1-->12.7. CPK-185. CRP increased from 223-->265 MRI of the elbow showed cellulitis with evidence of myositis and possible septic arthritis. Patient was taken to surgery by Dr. Laird and joint fluid has been sent for evaluation. Dr. Velasco has been consulted and recommends continuing vancomycin and discontinuing Rocephin. Clarified with patient his prophylactic gout medication. Records from [facility] indicated he was on allopurinol. He states he had an adverse reaction to allopurinol in the past and Dr. Zurita changed him to Uloric over 6 months ago. Hold Zocor given the pain in his legs (although it is unlikely this has anything to do with his symptoms). Bilateral Doppler of lower extremities was negative. ? etiology of his leg pain. Suspect there is some anxiety playing in to his sxs. Case discussed with Dr. Stewart. DC IV fluids later this evening if patient is taking p.o. well. 06/18/17 Uric acid crystals found in joint fluid - start indomethacin. On ranitidine for GERD. Follow renal function. Continue vancomycin. Gram positive cocci on gram stain. Leg pain improved, although after I had seen pt, nurse called me and reports pt started having pain when she resumed the SCD's. DC SCD's and start lovenox. DC IV fluids. 06/19/17 Clinically improved with combined treatment for septic arthritis and acute gout. Cultures pending but with gram-positive bacteria seen on Gram stain's anticipate continuation of antibiotics. Discharge on hold for culture results. If cultures negative will discharge either on vancomycin or daptomycin 6 mg/kg per day. Discussed with Dr. Velasco and orthopedics. Continue indomethacin for gout, renal function stable.
--- NOTE | 2017-06-20 10:01 | Discharge Summary ---
Orthopedic Discharge Info Date of admission: 06/16/17 10:46 Anticipated date of discharge: 06/20/17 Primary care physician: Gregory Gudino DO Attending Physician: Zay Laird MD Consults: 06/16/17 11:42 Physician Consult [CONS] Routine Consulting Provider: Priya Stewart Reason For Exam: CHRONIC KIDNEY DISEASE Ordering Provider has Notified Director Zone: Yes Comment: SEE PROVIDER NOTIFICATION. 06/16/17 15:35 Physician Consult [CONS] Routine Consulting Provider: Faiza Velasco Reason For Exam: Cellulitis Ordering Provider has Notified Director Zone: Yes 06/17/17 05:07 Case Management Consult [CONS] Routine Reason For Exam: OVERNIGHT OXIMETER - Discharge Diagnosis (1) Cellulitis of left elbow Status: Acute (2) Septic joint of left elbow Status: Acute - Laboratory Result Diagrams: 06/20/17 04:05 06/20/17 04:05 Laboratory: Abnormal lab results 06/20/17 06/20/17 Range/Units 04:05 04:05 RBC 3.89 L (4.50-5.90) M/MM3 Hgb 12.4 L (13.5-17.5) GM/DL Hct 36.7 L (41-53) % [place] % (Auto) 9.1 H (0-9.0) % Eos % (Auto) 4.7 H (0-4) % [place] # (Auto) 1.0 H (0-0.8) T/MM3 Sodium 146 H (134-144) MEQ/L Chloride 112 H (98-107) MEQ/L BUN 29.0 H (9-20) MG/DL Calculated Osmolality 286 H (261-280) MOSM/KG H & H 06/17/17 06/18/17 06/19/17 Range/Units 03:54 03:45 03:52 Hgb 14.1 13.0 L 12.3 L (13.5-17.5) GM/DL Hct 41.0 38.6 L 36.3 L (41-53) % 06/20/17 Range/Units 04:05 Hgb 12.4 L (13.5-17.5) GM/DL Hct 36.7 L (41-53) % - Microbiology Microbiology 06/17/17 15:19 Elbow, Left Gram Stain - Final 06/17/17 15:19 Elbow, Left Deep Wound Culture - Preliminary No Growth After 1 Day 06/17/17 15:21 Elbow, Left Gram Stain - Final 06/17/17 15:21 Elbow, Left Deep Wound Culture - Preliminary No Growth After 1 Day Orthopedic Discharge HPI - HPI Comments Chetan started having left elbow pain Saturday mid afternoon. Has noticed increased redness and swelling of left elbow, warm to the touch. Painful to extend or move arm. C/O chills, fever. Seen by PCP and was admitted to [facility] in [place] for possible septic joint 06/15/17. CRP 44, WBC 14. uric acid wnl. blood cultures obtained. Received Vancomycin 1gm and Rocephin. Repeat labs 06/16/17 revealed CRP elevated to 223. WBC 14.3, and patient febrile. Dr. Laird was notified by Dr. Gudino, admitted directly [place] [facility] [place] scan negative for joint effusion. Consulted hospitalist and ID. Patient does have history of gout. See H&P for further details. Orthopedic Hospital Course Hospital course: Hospital Course: 06/16/17-hospitalist consultation CT shows cellulitis and no evidence of osteomyelitis. Dr. Laird may take pt to OR tomorrow pending sxs/labs, etc. Continue antibiotics. He was receiving Rocephin and vancomycin at [facility]. Blood cultures are pending from [facility]. Uric acid level is normal. Patient on allopurinol chronically. Last gout flare greater than 1 year ago. Start MiraLAX and senna daily for bowel motivation as patient tends to be constipated and is being treated with narcotic pain medication. Blood pressure elevated as would be expected given his pain. Will follow pressures. Continue home lisinopril and metoprolol. Continue ranitidine for GERD. Continue allopurinol for gout., Continue Zocor for hyperlipidemia Follow creatinine given his chronic kidney disease. CODE STATUS: DO NOT RESUSCITATE SCDs for DVT prophylaxis Care to return to the [facility] medical clinic upon dismissal. 06/17/17 WBC improved from yesterday. 14.1-->12.7. CPK-185. CRP increased from 223-->265 MRI of the elbow showed cellulitis with evidence of myositis and possible septic arthritis. Patient was taken to surgery by Dr. Laird - I&D with exploration of left elbow, aspiration of left elbow joint. I&D superficial abscess, irrigation of left elbow joint, cultures obtained. Dr. Velasco has been consulted and recommends continuing vancomycin and discontinuing Rocephin. Clarified with patient his prophylactic gout medication. Records from [facility] indicated he was on allopurinol. He states he had an adverse reaction to allopurinol in the past and Dr. Zurita changed him to Uloric over 6 months ago. Hold Zocor given the pain in his legs (although it is unlikely this has anything to do with his symptoms). Bilateral Doppler of lower extremities was negative. ? etiology of his leg pain. Suspect there is some anxiety playing in to his sxs. Case discussed with Dr. Stewart. DC IV fluids later this evening if patient is taking p.o. well. 06/18/17 Uric acid crystals found in joint fluid - start indomethacin. On ranitidine for GERD. Follow renal function. Continue vancomycin. Gram positive cocci on gram stain. Leg pain improved, although after I had seen pt, nurse called me and reports pt started having pain when she resumed the SCD's. DC SCD's and start lovenox. DC IV fluids. 06/19/17 Clinically improved with combined treatment for septic arthritis and acute gout. Cultures pending but with gram-positive bacteria seen on Gram stain's anticipate continuation of antibiotics. Discharge on hold for culture results. If cultures negative will discharge either on vancomycin or daptomycin 6 mg/kg per day. Discussed with Dr. Velasco and orthopedics. Continue indomethacin for gout, renal function stable. Care extended to > 2 midnight stays?: Yes Discharge Plan - Med Rec/Dispo Referrals/Follow Up: Faiza Velasco MD [Physician] - (Follow up with Dr. Velasco in 10 days, call to make appointment. ) Sapna Barrow APRN [Advanced Practice Nurse] - 06/24/17 (Call Ortho clinic Thursday to schedule follow up with Sapna Barrow APRN Thursday06/24/17. ) Gregory Gudino DO [Family Provider] - (Follow up with PCP, Dr. Gudino in the next week. ) Prescriptions: New Indomethacin [Indocin] 25 mg PO TIDWM PRN #25 cap PRN Reason: Pain Lisinopril [Prinivil] 10 mg PO DAILY #30 tab Milk of Magnesia [Mom] 30 ml PO DAILY PRN udc PRN Reason: Constipation PEG 3350 17gm PACKET [Miralax] 17 gm PO DAILY packet DAPTOmycin [Cubicin] 540 mg IVP DAILY vial Oxycodone/Acetaminophen 5/325 [Percocet 5/325] 1 - 2 tab PO Q4H PRN #30 tab PRN Reason: Pain Continue Ranitidine [Zantac] 150 mg PO QAM Febuxostat [Uloric] 40 mg PO QDRHS Metoprolol Tartrate [Lopressor] 25 mg PO WB Simvastatin [Zocor] 20 mg PO HS No Action Lisinopril [Prinivil] 5 mg PO DAILY - Disposition 01 Discharged Home, Self-Care - Dismissal Complete Discharge Instructions are:: Complete
[2017-06-20] MEDS ORDERED: LISINOPRIL 5 MG TABLET PO ONE (10:02)
[2017-06-20] MEDS ORDERED: DAPTOMYCIN IVP SCH ×2 (11:00→13:00)
[2017-06-20] MEDS ORDERED: NS IVP SCH ×2 (11:00→13:00)
--- NOTE | 2017-06-20 11:39 | Progress Note ---
- Date 06/20/17 Subjective: Mr. Hernandez was seen with his at the bedside. Reports his elbow is a little bit sore having just had the packing changed but generally feels much better. He denies lower extremity pain but his is concerned that he is having a gout attack involving the right great toe because it's red today. Patient reports minimal pain in the foot however. He denies dyspnea, palpitations, nausea, or lightheadedness. Appetite is good. Objective Vital signs: Temperature 98.5 F 06/20/17 07:23 Pulse Rate 59 L 06/20/17 07:23 Respiratory Rate 16 06/20/17 07:23 Blood Pressure 140/82 H 06/20/17 07:23 Pulse Oximetry 94 06/20/17 07:23 NAD, alert Oropharynx clear, no evidence of thrush Respirations nonlabored, good airflow, breath sounds clear Regular rhythm, S1-S2 Abdomen soft, nontender, bowel sounds present Trace edema to the ankles bilaterally; < 1 cm area of erythema medial right great toe, no soft tissue swelling in the toe is nontender to palpation Height/Weight/BMI: Height 1.77 m Weight 90 kg Body Mass Index 29.5 Results - Labs CBC & Chem 7: 06/20/17 04:05 06/20/17 04:05 Microbiology Results: Microbiology 06/17/17 15:19 Elbow, Left Gram Stain - Final 06/17/17 15:19 Elbow, Left Deep Wound Culture - Preliminary No Growth After 1 Day 06/17/17 15:21 Elbow, Left Gram Stain - Final 06/17/17 15:21 Elbow, Left Deep Wound Culture - Preliminary No Growth After 1 Day Assessment and Plan (1) Cellulitis of left elbow Current visit: Yes Status: Acute (2) Gout Current visit: Yes Status: Acute (3) Septic joint of left elbow Current visit: Yes Status: Acute Assessment and Plan: Assessment Cellulitis left elbow-rule out septic joint versus gout Leukocytosis Lower leg pain (acute onset overnight for 06/16-06/17-from knees to feet) - question etiology Acute gout Chronic/associated conditions Hypertension Chronic gout Chronic kidney disease Hyperlipidemia GERD Plan Clinically stable with combined treatment for septic arthritis and acute gout. No growth on culture at this time; gram-positive bacteria seen on Gram stain's-- > plan continuation of antibiotics as an outpatient. Switch from vancomycin to 6 mg/kg/d daptomycin (total dose 540 mg) with first dose to be given this morning and subsequent daily doses as an outpatient at [facility]. Discussed with orthopedics. Continue indomethacin for gout prn. Blood pressure modestly elevated-lisinopril increased to 10 mg daily; discussed medication change with the patient and his . Discussed with case management several times daily, wound care orders written for the infusion center. Resuscitation Status: Full Code - Physician Narrative Narrative: Date: 06/20/17 Time: 1135 Hospital Course Summary Disclaimer: The visit summary below is not to be considered part of the above Progress Note. Hospital Course: 06/16/17-hospitalist consultation CT shows cellulitis and no evidence of osteomyelitis. Dr. Laird may take pt to OR tomorrow pending sxs/labs, etc. Continue antibiotics. He was receiving Rocephin and vancomycin at [facility]. Blood cultures are pending from [facility]. Uric acid level is normal. Patient on allopurinol chronically. Last gout flare greater than 1 year ago. Start MiraLAX and senna daily for bowel motivation as patient tends to be constipated and is being treated with narcotic pain medication. Blood pressure elevated as would be expected given his pain. Will follow pressures. Continue home lisinopril and metoprolol. Continue ranitidine for GERD. Continue allopurinol for gout., Continue Zocor for hyperlipidemia Follow creatinine given his chronic kidney disease. CODE STATUS: DO NOT RESUSCITATE SCDs for DVT prophylaxis Care to return to the [facility] medical clinic upon dismissal. 06/17/17 WBC improved from yesterday. 14.1-->12.7. CPK-185. CRP increased from 223-->265 MRI of the elbow showed cellulitis with evidence of myositis and possible septic arthritis. Patient was taken to surgery by Dr. Laird and joint fluid has been sent for evaluation. Dr. Velasco has been consulted and recommends continuing vancomycin and discontinuing Rocephin. Clarified with patient his prophylactic gout medication. Records from [facility] indicated he was on allopurinol. He states he had an adverse reaction to allopurinol in the past and Dr. Zurita changed him to Uloric over 6 months ago. Hold Zocor given the pain in his legs (although it is unlikely this has anything to do with his symptoms). Bilateral Doppler of lower extremities was negative. ? etiology of his leg pain. Suspect there is some anxiety playing in to his sxs. Case discussed with Dr. Stewart. DC IV fluids later this evening if patient is taking p.o. well. 06/18/17 Uric acid crystals found in joint fluid - start indomethacin. On ranitidine for GERD. Follow renal function. Continue vancomycin. Gram positive cocci on gram stain. Leg pain improved, although after I had seen pt, nurse called me and reports pt started having pain when she resumed the SCD's. DC SCD's and start lovenox. DC IV fluids. 06/19/17 Clinically improved with combined treatment for septic arthritis and acute gout. Cultures pending but with gram-positive bacteria seen on Gram stain's anticipate continuation of antibiotics. Discharge on hold for culture results. If cultures negative will discharge either on vancomycin or daptomycin 6 mg/kg per day. Discussed with Dr. Velasco and orthopedics. Continue indomethacin for gout, renal function stable. 06/20/17 Clinically stable with combined treatment for septic arthritis and acute gout. No growth on culture at this time; gram-positive bacteria seen on Gram stain's-- > plan continuation of antibiotics as an outpatient. Switch from vancomycin to 6 mg/kg/d daptomycin (total dose 540 mg) with first dose to be given this morning and subsequent daily doses as an outpatient at [facility]. Discussed with orthopedics. Continue indomethacin for gout prn. Blood pressure modestly elevated-lisinopril increased to 10 mg daily; discussed medication change with the patient and his . Discussed with case management several times daily, wound care orders written for the infusion center.
[2017-06-20 11:45] VITALS: BP 148/88; PULSE 52; RESP 20; TEMP 97.6
[2017-06-21] MEDS ORDERED: LISINOPRIL 5 MG TABLET PO SCH (09:00)
== END 2017-06-20 11:55 | disposition home or self-care (01) | DRG 549 ==
LOC: SRG 10:46
PROVIDERS: ADMIT Orthopaedic Surgery; ATTEND Orthopaedic Surgery